=== PATIENT | male | born 1945 | race Caucasian/White ===

== ENCOUNTER 2017-08-16 12:25 | Emergency (ER) | payer MEDICARE, OTHER ==
[2017-08-16 15:18] VITALS: BP 121/47
--- NOTE | 2017-08-16 15:44 | ED ---
Abdominal Pain/Male - HPI Summary HPI Summary: 71 yr old male with abdominal pain, dizziness, feeling off balance at times, coughing, and at times feeling to weak to even get out of bed. The patient has not felt well for about four days. Denies fever, denies chest pain, sob. Denies melena, denies vomiting, diarrhea. The pain in his abdomen comes and goes. - History of Current Complaint Chief Complaint: UCGeneralIllness Stated Complaint: STOMACH ISSUES Time Seen by Provider: 08/16/17 15:11 Pain Intensity: 5 - Allergies/Home Medications Allergies/Adverse Reactions: Allergies Allergy/AdvReac Type Severity Reaction Status Date / Time No Known Allergies Allergy Verified 08/16/17 15:10 Home Medications: Home Medications Acetaminophen TAB* [Tylenol TAB*] 650 mg PO Q4H PRN 08/16/17 [History Confirmed 08/16/17] PMH/Surg Hx/FS Hx/Imm Hx Endocrine/Hematology History: Reports: Hx Diabetes - TYPE II, ON ORAL MEDS Cardiovascular History: Reports: Hx Hypertension - ON MEDS FOR Respiratory History: Denies: Hx Asthma, Hx Chronic Obstructive Pulmonary Disease (COPD) GI History: Reports: Other GI Disorders Comment Only: Hx Ulcer - PT HAD PERFORATED ULCER IN INTESTINE 6 YEARS AGO, EMERGENCY SURGERY Musculoskeletal History: Reports: Hx Arthritis - PT STATES "IN JOINTS" Sensory History: Reports: Hx Cataracts - BILATERAL EYES, Hx Contacts or Glasses - GLASSES Denies: Hx Hearing Aid Opthamlomology History: Reports: Hx Cataracts - BILATERAL EYES, Hx Contacts or Glasses - GLASSES - Cancer History Hx Chemotherapy: Yes - 8 Chemo treatments 2013 Hx Radiation Therapy: Yes - 35 Treatments - Surgical History Surgery Procedure, Year, and Place: Right Mastectomy, intestine rupture Hx Anesthesia Reactions: Yes - SEE COMMENT IN [facility] Infectious Disease History: No Infectious Disease History: Denies: Traveled Outside the [place] in Last 30 Days - Family History Known Family History: Positive: Hypertension Negative: Cardiac Disease, Diabetes - Social History Occupation: Retired Alcohol Use: None Substance Use Type: Reports: None Smoking Status (MU): Former Smoker Amount Used/How Often: 1 PACK A DAY FOR 25 YEARS Review of Systems Positive: Fatigue. Negative: Fever, Chills Negative: Palpitations, Chest Pain Positive: Cough. Negative: Shortness Of Breath Positive: Abdominal Pain Neurological: Other - feels off balance Positive: Weakness - generalized All Other Systems Reviewed And Are Negative: Yes Physical Exam Triage Information Reviewed: Yes Vital Signs On Initial Exam: Initial Vitals Temp Pulse Resp BP Pulse Ox 98.1 F 71 24 121/47 100 08/16/17 15:13 08/16/17 15:13 08/16/17 15:13 08/16/17 15:13 08/16/17 15:13 Vital Signs Reviewed: Yes Appearance: Positive: Well-Appearing, No Pain Distress Skin: Positive: Warm, Skin Color Reflects Adequate Perfusion Head/Face: Positive: Normal Head/Face Inspection ENT: Positive: Normal ENT inspection, Pharynx normal Neck: Positive: Nontender Respiratory/Lung Sounds: Positive: Clear to Auscultation, Breath Sounds Present Cardiovascular: Positive: RRR. Negative: Murmur Abdomen Description: Positive: Nontender Musculoskeletal: Positive: Strength/ROM Intact Neurological: Positive: Sensory/Motor Intact, Alert, Oriented to Person Place, Time, CN Intact II-III, Normal Gait, Speech Normal. Negative: Disoriented - Alex Coma Scale Best Eye Response: 4 - Spontaneous Best Motor Response: 6 - Obeys Commands Best Verbal Response: 5 - Oriented Coma Scale Total: 15 Diagnostics - Vital Signs Vital Signs Temp Pulse Resp BP Pulse Ox 08/16/17 15:13 98.1 F 71 24 121/47 100 - Laboratory Lab Statement: Any lab studies that have been ordered have been reviewed, and results considered in the medical decision making process. Abdominal Pain Fem Course/Dx - Course Course Of Treatment: 71 yr old male with many symptoms, but concerning is the abdominal pain and dizziness, off balance. I have advised him to go by ambulance to the ER as he is at risk for falls injury. He signed out AMA. - Diagnoses Provider Diagnoses: Abdominal pain, Dizziness, Cough Discharge - Discharge Plan Condition: Good Disposition: AGAINST MEDICAL ADVICE Referrals: Migue Pickett MD [Primary Care Provider] -
== END 2017-08-16 15:42 | disposition left against medical advice (07) ==
LOC: UCCORT 12:25
DX: R10.9 Unspecified abdominal pain (principal); R42 Dizziness and giddiness; R05 Cough; R53.1 Weakness; E11.9 Type 2 diabetes mellitus without complications; Z79.84 Long term (current) use of oral hypoglycemic drugs; I10 Essential (primary) hypertension; Z87.891 Personal history of nicotine dependence
CPT/HCPCS: 99212; G0463

== ENCOUNTER 2018-02-08 12:22 | Emergency (ER) | payer OTHER ==
--- OUTSIDE RECORDS SUMMARY | 2018-02-08 12:41 | XMS REPORT ---
:1945 External Reference #:[id number] Author Organization [facility] Address [address], [address] [place] [address] Phone [phone] Care Team Providers Name Role Phone Migue Pickett MD Care Team Information Assistant Media Buyer Unavailable Migue Pickett MD Primary Care Physician Unavailable Payers Type Date Identification Numbers Payment Provider Subscriber Commercial Policy Number: [id number] [employer] Jose Gomez PayID: [id number] [address] [place] [address] Problems Date Description Provider Status Onset: 07/17/2012 Malignant neoplasm of nipple Bill Lopez M.D. Active and areola of male breast Onset: 05/08/2017 Benign prostatic hypertrophy Hood Sandoval M.D. 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 Tamsulosin HCL 05/08/ Active Capsules 0.4mg 90caps 1 by N40.1 [facility] [place] 2016 mouth Jaime, every day M.D. at bedtime Gabapentin / Active Capsules 300mg 1 by Unknown 0000 mouth three times a day Glipizide ER / Active Tablets ER 5mg 1 by Unknown 0000 24HR mouth every day Valsartan / Active Tablets 80mg 1 by Unknown 0000 mouth every day Metformin HCL / Active Tablets 1000mg 1 by Unknown 0000 mouth twice a day Pioglitazone / Active Tablets 45mg 1 by Unknown HCL 0000 mouth every day Simvastatin / Active Tablets 80mg 1 by Unknown 0000 mouth every day Levothyroxine / Active Tablets 50mcg 1 by Unknown Sodium 0000 mouth every day Tamoxifen / Active Tablets 20mg 1 tabl by Unknown Citrate 0000 mouth every day Omeprazole / Hx Capsules 20mg 1 po qd Unknown 0000 - DR 2016 Simvastatin / Hx Tablets 40mg 30tabs 1 po qd Unknown - 2016 Lisinopril / Hx Tablets 10mg 30tabs 1 po qd Unknown 0000 - 2009 Actoplus Met / Hx Tablets 15-850mg Unknown - 2016 Lisinopril-Hydr / Hx Tablets 10-12.5mg 30tabs 1 po qd Unknown ochlorothiazide - 2016 Vital Signs Date Vital Result Comment 01/15/2018 BP Systolic 13 mmHg BP Diastolic 68 mmHg Body Temperature 98.0 F Heart Rate 72 /min Respiratory Rate 17 /min Height 68.50 inches 5'8.50" Weight 216.25 lb BMI (Body Mass Index) 32.4 kg/m2 BSA (Body Surface Area) 2.12 m2 [place] body weight in kilograms 71 Head Circumference 98 inches O2 % BldC Oximetry 97 % Pain Level 0 06/19/2017 BP Systolic 175 mmHg Pt forgot to take BP med this am. BP Diastolic 70 mmHg Pt forgot to take BP med this am. Body Temperature 97.9 F 36.6C Heart Rate 63 /min Respiratory Rate 18 /min Height 68.50 inches 5'8.50" Weight 209.56 lb BMI (Body Mass Index) 31.4 kg/m2 BSA (Body Surface Area) 2.10 m2 [place] body weight in kilograms 71 O2 % BldC Oximetry 98 % Pain Level 0 05/08/2017 BP Systolic 158 mmHg BP Diastolic 66 mmHg Body Temperature 97.9 F Heart Rate 74 /min Respiratory Rate 16 /min Height 68.50 inches 5'8.50" Weight 20.00 lb BMI (Body Mass Index) 3.0 kg/m2 BSA (Body Surface Area) 0.77 m2 [place] body weight in kilograms 71 O2 % BldC Oximetry 99 % Pain Level 0 07/17/2012 Heart Rate 64 /min Respiratory Rate 22 /min Height 68.50 inches 5'8.50" Weight 182.00 lb BMI (Body Mass Index) 27.3 kg/m2 BSA (Body Surface Area) 1.97 m2 12/16/2009 Height 69.50 inches 5'9.50" Weight 173.00 lb BMI (Body Mass Index) 25.2 kg/m2 Results Test Date Test Result H/L Range Note CBC 09/03/2012 White Blood Count 6.7 K/uL 3.4-10.5 Red Blood Count 4.98 M/uL 4.20-5.80 Hemoglobin 13.8 gm/dL 12.8-17.0 Hematocrit 42.4 % 38.0-48.0 Mean Cell Volume 85.1 fl 80.0-96.0 Mean Corpuscular HGB 27.7 pg 27.0-33.0 Mean Corpuscular HGB Conc 32.5 g/dL 31.7-36.0 Platelet Count 245 K/uL 150-400 Red Cell Distri Width %CV 13.1 % 11.6-15.8 Mean Platelet Volume 10.7 fL High 6.6-10.6 Urine Screen 09/03/2012 Urine Color YELLOW Yellow Urine Clarity CLEAR Clear Urine Glucose - Dipstick NEGATIVE mg/dL Negative Urine Bilirubin - Dipstick NEGATIVE Negative Urine Ketone NEGATIVE mg/dL Negative Urine Specific [place] 1.020 1.010-1.030 Urine Blood NEGATIVE Negative Urine PH 6.0 Low 6.5-7.5 Urine Protein - Dipstick NEGATIVE mg/dL Negative Urine Urobilinogen - Dipstick 0.2 E.U./dL 0.2-1.0 Urine Nitrite - Dipstick NEGATIVE Negative Urine Leuk Esterase NEGATIVE Negative Laboratory test finding 08/13/2012 CK 114 U/L 26-190 1 Troponin-I < 0.02 ng/mL 0.00-0.50 2 Basic Metabolic Panel 08/13/2012 Glucose 184 mg/dL High 76-115 BUN 22 mg/dL 5-23 Creatinine 1.2 mg/dL 0.5-1.4 Glom Filtration Rate, Estimate >60 mL/min >60 If >60 mL/min >60 3 BUN/Creat 18.3 ratio Sodium 138 mmol/L 136-145 Potassium 4.0 mmol/L 3.5-5.1 Chloride 104 mmol/L 98-107 Carbon Dioxide 25 mEq/L 18-29 Anion Gap 13 mEq/L 8-16 Calcium 9.1 mg/dL 8.5-10.1 Laboratory test finding 08/13/2012 Breast Modif Rad Mastectomy See Note ln +raya 4 Laboratory test finding 08/13/2012 Breast Modif Rad Mastectomy See Note 5 Type And Screen 08/13/2012 Patient Blood Type O NEG Antibody Screen Negative Negative Laboratory test finding 08/09/2012 Act Partial Thrombo 29.9 seconds 23.9- 34.3 6 Time Protime 08/09/2012 Protime 13.1 seconds 12.1-14.9 Inr 1.0 0.9-1.1 7 CBC 08/09/2012 White Blood Count 7.3 K/uL 3.4-10.5 Red Blood Count 4.91 M/uL 4.20-5.80 Hemoglobin 13.8 gm/dL 12.8-17.0 Hematocrit 42.6 % 38.0-48.0 Mean Cell Volume 86.8 fl 80.0-96.0 Mean Corpuscular HGB 28.1 pg 27.0-33.0 Mean Corpuscular HGB Conc 32.4 g/dL 31.7-36.0 Platelet Count 246 K/uL 150-400 Red Cell Distri Width %CV 13.3 % 11.6-15.8 Mean Platelet Volume 10.8 fL High 6.6-10.6 Basic Metabolic Panel 08/09/2012 Glucose 171 mg/dL High 76-115 BUN 20 mg/dL 5-23 Creatinine 1.2 mg/dL 0.5-1.4 Glom Filtration Rate, Estimate >60 mL/min >60 If >60 mL/min >60 8 BUN/Creat 16.6 ratio Sodium 138 mmol/L 136-145 Potassium 4.6 mmol/L 3.5-5.1 Chloride 103 mmol/L 98-107 Carbon Dioxide 30 mEq/L High 18-29 Anion Gap 10 mEq/L 8-16 Calcium 9.5 mg/dL 8.5-10.1 CBC 12/07/2009 White Blood Count 6.5 K/uL 3.4-10.5 Red Blood Count 3.82 M/uL Low 4.20-5.80 Hemoglobin 10.9 gm/dL Low 12.8-17.0 Hematocrit 33.9 % Low 38.0-48.0 Mean Cell Volume 88.7 fl 80.0-96.0 Mean Corpuscular HGB 28.5 pg 27.0-33.0 Mean Corpuscular HGB Conc 32.2 g/dL 31.7-36.0 Platelet Count 245 K/uL 150-400 Red Cell Distri Width %CV 13.7 % 11.6-15.8 Mean Platelet Volume 9.6 fL 6.6-10.6 Basic Metabolic Panel 12/07/2009 Glucose 96 mg/dL 76-115 BUN 14 mg/dL 5-23 Creatinine 0.8 mg/dL 0.5-1.4 Glom Filtration Rate, Estimate >60 mL/min >60 If >60 mL/min >60 9 BUN/Creat 17.5 Sodium 141 mEq/L 136-145 Potassium 3.9 mEq/L 3.5-5.1 Chloride 107 mEq/L 98-107 Carbon Dioxide 29 mEq/L 21-32 Anion Gap 9 mEq/L 8-16 Calcium 8.3 mg/dL Low 8.5-10.1 CBS W/Automated Diff 12/05/2009 White Blood Count 9.4 K/uL 3.4-10.5 Red Blood Count 3.75 M/uL Low 4.20-5.80 Hemoglobin 10.9 gm/dL Low 12.8-17.0 Hematocrit 33.5 % Low 38.0-48.0 Mean Cell Volume 89.3 fl 80.0-96.0 Mean Corpuscular HGB 29.1 pg 27.0-33.0 Mean Corpuscular HGB Conc 32.5 g/dL 31.7-36.0 Platelet Count 225 K/uL 150-400 Red Cell Distri Width %CV 14.2 % 11.6-15.8 Mean Platelet Volume 10.2 fL 6.6-10.6 Neut% 76.7 % High 33.0-73.0 Lymph % 14.8 % Low 17.0-56.0 [place] % 7.2 % 0.0-10.0 Eo% 1.1 % 0.0-5.0 Bas% 0.2 % 0.1-1.0 Neut# 7.2 K/uL High 1.8-7.0 Lymph # 1.4 K/uL 1.2-4.0 [place] # 0.7 K/uL High 0.0-0.6 Eos # 0.1 K/uL 0.0-0.5 Baso # 0.0 K/uL Low 0.1-0.2 Red Cell Distri Width SD 45 fl 36-51 Laboratory test finding 12/05/2009 Glycohemoglobin A1c 6.9 % High 4.8-6.0 10 Basic Metabolic Panel 12/05/2009 Glucose 150 mg/dL High 76-115 BUN 10 mg/dL 5-23 Creatinine 1.0 mg/dL 0.5-1.4 Glom Filtration Rate, Estimate >60 mL/min >60 If >60 mL/min >60 11 BUN/Creat 10.0 Sodium 141 mEq/L 136-145 Potassium 3.8 mEq/L 3.5-5.1 Chloride 108 mEq/L High 98-107 Carbon Dioxide 29 mEq/L 21-32 Anion Gap 8 mEq/L 8-16 Calcium 8.2 mg/dL Low 8.5-10.1 Basic Metabolic Panel 12/03/2009 Glucose 249 mg/dL High 76-115 BUN 18 mg/dL 5-23 Creatinine 1.1 mg/dL 0.5-1.4 Glom Filtration Rate, Estimate >60 mL/min >60 If >60 mL/min >60 12 BUN/Creat 16.3 Sodium 136 mEq/L 136-145 Potassium 4.2 mEq/L 3.5-5.1 Chloride 105 mEq/L 98-107 Carbon Dioxide 25 mEq/L 21-32 Anion Gap 10 mEq/L 8-16 Calcium 7.8 mg/dL Low 8.5-10.1 CBC 12/03/2009 White Blood Count 12.0 K/uL High 3.4-10.5 Red Blood Count 4.29 M/uL 4.20-5.80 Hemoglobin 12.4 gm/dL Low 12.8-17.0 Hematocrit 36.8 % Low 38.0-48.0 Mean Cell Volume 85.8 fl 80.0-96.0 Mean Corpuscular HGB 28.9 pg 27.0-33.0 Mean Corpuscular HGB Conc 33.7 g/dL 31.7-36.0 Platelet Count 227 K/uL 150-400 Red Cell Distri Width %CV 13.6 % 11.6-15.8 Mean Platelet Volume 10.3 fL 6.6-10.6 Laboratory test finding 2009 Appendix Inflammation See Note 13, 14 Anaerobic Culture W/ GR 2009 Gram Stain; Anaerobic See Note 15 Stain Specimen Anaerobic Culture See Note 16 Fluid Culture W/ Gram Stain 2009 Gram Stain See Note 17 Fluid Culture See Note 18 Laboratory test finding 2009 Anaerobic Culture W/ GR Stain See Note 19 Routine Culture W/ Gram Stain See Note 20 1 CALLED CHRISTINE Ortega AT 1250 08/13/12 by LAB.KLS 2 0 - 0.5 ng/mL: No evidence of myocardial injury 0.6 - 1.4 ng/mL: Mild elevation, suggesting possible myocardial injury > 1.4 ng/mL: Consistent with myocardial injury 3 Note: Persistent reduction for 3 months or more in an eGFR <60 mL/min/1.73 m2 defines CKD. Patients with eGFR values >/=60 mL/min/1.73 m2 may also have CKD if evidence of persistent proteinuria is present. The original MDRD equation for estimated GFR is not valid for patients less than 18 years of age. Additional information may be found at www.kdoqi.org. 4 OPERATION/PROCEDURE Right modified radical mastectomy, lymph scintigraphy, sentinel lymph node biopsy. DIAGNOSIS: PART 1: "RIGHT SENTINEL NODE": NO METASTASIS SEEN IN ONE LYMPH NODE. PART 2: "ADDITIONAL POSITIVE NODE": POSITIVE FOR METASTASIS IN ONE OUT OF ONE LYMPH NODE. PART 3: "RIGHT BREAST, MASTECTOMY": INVASIVE DUCTAL CARCINOMA, INTERMEDIATE GRADE, SEE MICROSCOPIC DESCRIPTION. DUCTAL CARCINOMA IN SITU, COMEDO TYPE, HIGH GRADE. NO EVIDENCE OF PAGET'S DISEASE. NO EVIDENCE OF MALIGNANCY AT MARGINS. PATHOLOGIC STAGING: pT1c, N1, MX. JW/leof INTERPRETATION COMMENT Previous biopsy ([id number]) was reviewed. No high grade nuclei are seen. In the current specimen, both high and low grade nuclei are seen. The discrepancy between two specimens is most likely caused by sampling error. GROSS Part 1. Received fresh labeled, "SENTINEL NODE, RIGHT" is a 1.5 x 1.4 x 0.5 cm. cano-pink soft tissue. It is serially sectioned and submitted in toto in block #1. Part 2. Received fresh labeled, "ADDITIONAL POSITIVE NODE" is a 1.7 x 0.9 x 0.9 cm. cano-pink rubbery tissue. Trisected and submitted in toto in block #2. JW/clf Part 3. Received in formalin labeled, "RIGHT BREAST" is a cano-yellow, soft fibroadipose tissue measuring 14.2 cm. from superior to inferior, 10.9 cm. from medial to lateral and 3.1 cm. from posterior to anterior. A 6.5 x 3.2 cm. skin ellipse is seen on the surface. The nipple is located 0.8 cm. from the inferior margin and 3.2 cm. from the medial margin. A suture ordoñez the medial margin. Approximately 1.1 cm. from the medial margin is a scar, said to be the previous biopsy spot. The margins are inked as follows: superior-blue, inferior-green, medial-red, lateral-yellow and posterior-black. The specimen is serially sectioned from medial to lateral. On cut surface there is a firm mass measuring up to 1.9 cm. in greatest dimension that is located 3.5 cm. from inferior margin, 1.7 cm. from the posterior margin and 3.9 cm. from the medial margin. There are focal hemorrhagic changes within this mass that is compatible with the previous biopsy site. The background breast tissue is grossly unremarkable. [employer] sections are submitted as follows: A1-A3=mass with associated posterior margin, B1=nipple, B2+B3=other margins, C1-C4=background breast tissue, C1- contains the tissue from the upper/outer quadrant, C2-upper/inner quadrant, C3-lower inner quadrant, C4-lower outer quadrant. /leo MICROSCOPIC Part 1: Sections show a lymph node without evidence of epithelial malignant cells. However atypical cells forming vague glandular pattern are seen in fibrotic tissue outside the lymph node. Part 2: Sections show a lymph node with evidence of epithelial malignant cells. Part 3: Sections reveal irregular ducts lined by atypical cells infiltrating through desmoplastic stroma. Some of them have associated microcalcification. Dilated ducts lined by markedly atypical ductal cells with central necrosis and calcification are seen. Background non-neoplastic tissue and nipple are histologically unremarkable. Immunohistochemistry studies were performed at [facility] and interpreted at [facility] with proper controls, because of high grade components that were not identified in previous biopsy. Greatest dimension: 1.9 cm, gross measurement. Histologic type: Invasive ductal carcinoma. Histologic Grade ([place] Histologic Score): Intermediate grade. Tubule Formation: Minimal less than 10%, score=3. Nuclear Pleomorphism: Marked, score=3. Mitotic Count: Less than 5 per 10 high power thomas, score=1. In situ component: Comedo type, high grade. Marginal status: Uninvolved by invasive disease. Vascular invasion: Indeterminate. Perineural invasion: Not identified. Estrogen receptor: >80% nuclear stain, high positive. Progesterone receptor: >80% nuclear stain, high positive. Iaa4pts: 1+, No evidence of amplification. PRE OPERATIVE DIAGNOSIS Right breast cancer. REVIEW CODE CODE: I NATALIIA Figueroa MD 08/19/12 1346 5 OPERATION/PROCEDURE Right modified radical mastectomy, lymph scintigraphy, sentinel lymph node biopsy. ADDENDUM Addendum #1 Entered: 12/10/12-142 This case was reviewed as requested by Dr. Car. No evidence of extracapsular extension is seen in the sentinel lymph node (part 2) with metastatic ductal carcinoma. Dr. Car's office ([place]) was notified about this update. Addendum Signed NATALIIA DREW MD 12/10/12 1423 DIAGNOSIS: PART 1: "RIGHT SENTINEL NODE": NO METASTASIS SEEN IN ONE LYMPH NODE. PART 2: "ADDITIONAL POSITIVE NODE": POSITIVE FOR METASTASIS IN ONE OUT OF ONE LYMPH NODE. PART 3: "RIGHT BREAST, MASTECTOMY": INVASIVE DUCTAL CARCINOMA, INTERMEDIATE GRADE, SEE MICROSCOPIC DESCRIPTION. DUCTAL CARCINOMA IN SITU, COMEDO TYPE, HIGH GRADE. NO EVIDENCE OF PAGET'S DISEASE. NO EVIDENCE OF MALIGNANCY AT MARGINS. PATHOLOGIC STAGING: pT1c, N1, MX. DIAGNOSIS: (Continued) Dee INTERPRETATION COMMENT Previous biopsy ([id number]) was reviewed. No high grade nuclei are seen. In the current specimen, both high and low grade nuclei are seen. The discrepancy between two specimens is most likely caused by sampling error. GROSS Part 1. Received fresh labeled, "SENTINEL NODE, RIGHT" is a 1.5 x 1.4 x 0.5 cm. cano-pink soft tissue. It is serially sectioned and submitted in toto in block #1. Part 2. Received fresh labeled, "ADDITIONAL POSITIVE NODE" is a 1.7 x 0.9 x 0.9 cm. cano-pink rubbery tissue. Trisected and submitted in toto in block #2. BENEDICT/david Part 3. Received in formalin labeled, "RIGHT BREAST" is a cano-yellow, soft fibroadipose tissue measuring 14.2 cm. from superior to inferior, 10.9 cm. from medial to lateral and 3.1 cm. from posterior to anterior. A 6.5 x 3.2 cm. skin ellipse is seen on the surface. The nipple is located 0.8 cm. from the inferior margin and 3.2 cm. from the medial margin. A suture ordoñez the medial margin. Approximately 1.1 cm. from the medial margin is a scar, said to be the previous biopsy spot. The margins are inked as follows: superior-blue, inferior-green, medial-red, lateral-yellow and posterior-black. The specimen is serially sectioned from medial to lateral. On cut surface there is a firm mass measuring up to 1.9 cm. in greatest dimension that is located 3.5 cm. from inferior margin, 1.7 cm. from the posterior margin and 3.9 cm. from the medial margin. There are focal hemorrhagic changes within this mass that is compatible with the previous biopsy site. The background breast tissue is grossly unremarkable. [place] sections are submitted as follows: A1-A3=mass with associated posterior margin, B1=nipple, B2+B3=other margins, C1-C4=background breast tissue, C1- contains the tissue from the upper/outer quadrant, C2-upper/inner quadrant, C3-lower inner quadrant, C4-lower outer quadrant. JW/elof MICROSCOPIC Part 1: Sections show a lymph node without evidence of epithelial malignant cells. However atypical cells forming vague glandular pattern are seen in fibrotic tissue outside the lymph node. Part 2: Sections show a lymph node with evidence of epithelial malignant cells. Part 3: Sections reveal irregular ducts lined by atypical cells infiltrating through desmoplastic stroma. Some of them have associated microcalcification. Dilated ducts lined by markedly atypical ductal cells with central necrosis and calcification are seen. Background non-neoplastic tissue and nipple are histologically unremarkable. Immunohistochemistry studies were performed at [facility] and interpreted at [facility] with proper controls, because of high grade components that were not identified in previous biopsy. Greatest dimension: 1.9 cm, gross measurement. Histologic type: Invasive ductal carcinoma. Histologic Grade ([place] Histologic Score): Intermediate grade. Tubule Formation: Minimal less than 10%, score=3. Nuclear Pleomorphism: Marked, score=3. Mitotic Count: Less than 5 per 10 high power thmoas, score=1. In situ component: Comedo type, high grade. Marginal status: Uninvolved by invasive disease. Vascular invasion: Indeterminate. Perineural invasion: Not identified. MICROSCOPIC (Continued) Estrogen receptor: >80% nuclear stain, high positive. Progesterone receptor: >80% nuclear stain, high positive. Nha6cfx: 1+, No evidence of amplification. PRE OPERATIVE DIAGNOSIS Right breast cancer. REVIEW CODE CODE: I NATALIIA Figueroa MD 08/19/12 1346 6 Is patient on heparin protocol? N Is patient on anticoagulants? Unknown QUERY: Anticoagulant Therapy? QUERY: Date of Last Dose: QUERY: Time of Last Dose: 7 THERAPEUTIC INR RANGE: 2.0 - 3.0 DVT, Pulmonary embolus, prophylaxis against venous thrombosis or systemic embolization in high risk patients. 2.5 - 3.5 Mechanical heart valves 8 Note: Persistent reduction for 3 months or more in an eGFR <60 mL/min/1.73 m2 defines CKD. Patients with eGFR values >/=60 mL/min/1.73 m2 may also have CKD if evidence of persistent proteinuria is present. The original MDRD equation for estimated GFR is not valid for patients less than 18 years of age. Additional information may be found at www.kdoqi.org. 9 Note: Persistent reduction for 3 months or more in an eGFR <60 mL/min/1.73 m2 defines CKD. Patients with eGFR values >/=60 mL/min/1.73 m2 may also have CKD if evidence of persistent proteinuria is present. The original MDRD equation for estimated GFR is not valid for patients less than 18 years of age. Additional information may be found at www.kdoqi.org. 10 Current guidelines recommend a treatment goal of <7% for diabetic patients. This method will measure glycosylated hemoglobin variants, HbS, HbG, HbH, HbWayne, HbC, HbE, etc. Other hemoglobin- opathies may give incorrect results with this test. Note change in expected values for healthy individuals 11 Note: Persistent reduction for 3 months or more in an eGFR <60 mL/min/1.73 m2 defines CKD. Patients with eGFR values >/=60 mL/min/1.73 m2 may also have CKD if evidence of persistent proteinuria is present. The original MDRD equation for estimated GFR is not valid for patients less than 18 years of age. Additional information may be found at www.kdoqi.org. 12 Note: Persistent reduction for 3 months or more in an eGFR <60 mL/min/1.73 m2 defines CKD. Patients with eGFR values >/=60 mL/min/1.73 m2 may also have CKD if evidence of persistent proteinuria is present. The original MDRD equation for estimated GFR is not valid for patients less than 18 years of age. Additional information may be found at www.kdoqi.org. 13 OPERATION/PROCEDURE Exp. lap./appendectomy/grahm patch. DIAGNOSIS: "APPENDIX": APPENDIX WITH FEATURES SUGGESTIVE OF EARLY ACUTE APPENDICITIS. BENEDICT/david GROSS The specimen is received in a single container additionally labeled, "APPENDIX". This is 5.5 cm. appendix with a uniform diameter of 0.8 cm. The serosa is congested, but without exudates or visible perforation. The mesoappendiceal adipose tissue is unremarkable. The specimen is serially sectioned and the entire appendix is submitted within two cassettes. Only mesoappendiceal adipose tissue is remaining. WS/ clf MICROSCOPIC Sections reveal appendix with lymphoid follicles hypertrophy. Very rare neutrophils are seen in the stroma and glands. The serosal vessels are congested without an exudate. PRE OPERATIVE DIAGNOSIS [facility] pain REVIEW CODE CODE: I Signed NATALIIA DREW MD 12/07/09 14 12/07/09 ([place] ) 09:35 PM SARKIS[place]ELIA Clarita JOHANNY He has the perforation in the duodenum. Appendix taken as planned. 15 GRAM STAIN ! NO ORGANISMS SEEN 16 Organism 1 ! NO GROWTH 17 GRAM STAIN ! NO ORGANISMS SEEN 18 NO GROWTH: FINAL REPORT 19 INCORRECT ORDER 20 INCORRECT ORDER Procedures Date CPT Code Description Status 01/15/2018 21249 Measurement Post Voiding Residual Urine By Completed Ultrasound,Non-Imaging 05/08/2017 49569 Measurement Post Voiding Residual Urine By Completed Ultrasound,Non-Imaging 05/08/2017 89909 complex uroflowmetry electronic Completed 02/26/2014 96770 Remove venous access, +subq port or pump, central or Completed peripheral 05/06/2013 98320 Nerve Conduction 9-10 Studies Completed 05/06/2013 74524 Needle Electromyography Complete, Five Or More Muscles Completed Studied 02/27/2013 76385 Echocardiogram Complete Completed 09/20/2012 03142 Echocardiogram Complete Completed 09/06/2012 66280 Insert tunneled central venous catheter with Completed subcutaneous pump 09/06/2012 83470 Anesthesia Access To Central Venous Circulation Completed 08/13/2012 09193 EKG Interpretation And Report Only Completed 08/13/2012 86363 Mastectomy; simple, complete Completed 08/13/2012 46433 Anesthesia, Integumentary, Chest Anterior, Unspec Completed 08/09/2012 29237 EKG Interpretation And Report Only Completed 2009 92639 Laparoscopy, surgical, appendectomy Completed 2009 22347 Gastrorrhaphy, suture perforated duodenal or gastric Completed ulcer/wound Encounters Type Date Location Provider CPT E/M Dx Office Visit 01/15/2018 10:45a Urology Hood Sandoval M.D. 59443 N40.1 Office Visit 06/19/2017 10:15a Urology Hood Sandoval M.D. 81902 N40.1 Office Visit 05/08/2017 10:15a Urology Hood Sandoval M.D. 78233 N40.1 N40.1 Office Visit 03/12/2014 1:30p Surgical Office Bill Lopez, 06710 V67.09 M.DJuve 175.0 Office Visit 12/10/2013 11:30a Surgical Office Bill Lopez 34173 175.0 M.D. Office Visit 09/18/2012 3:15p Surgical Office Bill Lopez 62002 V67.09 M.D. 175.0 Office Visit 09/02/2012 9:30a Surgical Office Bill Lopez 03048 175.0 M.D. Office Visit 07/17/2012 11:30a Surgical Office Bill Lopez, 86256 175.0 M.D. Plan of Care Future Appointment(s):07/18/2018 10:45 am - Hood Sandoval M.D. at [id number] - Hood Sandoval M.D.N40.1 Benign prostatic hyperplasia with lower urinary tract sympNew Medication:Finasteride 5 mgComments:Patient is to continue with Flomax and I will add Proscar. Patient to follow up in 6 months for uroflow and PVR
--- OUTSIDE RECORDS SUMMARY | 2018-02-08 12:41 | XMS REPORT ---
:1945 External Reference #:[id number] Author Organization Migue Pickett M.D. Address [address] [place] [address] Phone [phone] Care Team Providers Name Role Phone Migue Pickett M.D. 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 [address] [place] [address] Advance Directives Type Date Description Status Comment Other Directive 06/20/2016 Health Care Proxy Current and Verified Problems Date Description Provider Status Onset: 07/24/2011 Type 2 diabetes mellitus Migue Pickett M.D. Active Onset: 07/24/2011 Essential hypertension Migue Pickett M.D. Active Onset: 07/24/2011 Hyperlipidemia Migue Pickett M.D. Active Onset: 07/24/2011 Insomnia Migue Pickett M.D. Active Onset: 07/24/2011 Anemia Migue Pickett M.D. Active Onset: 11/14/2017 Type 2 diabetes mellitus with Migue Pickett M.D. Active diabetic neuropathy, unsp Onset: 11/14/2017 Chronic kidney disease Migue Pickett M.D. Active Onset: 11/14/2017 Hypothyroidism Migue Pickett M.D. Active Onset: 11/14/2017 Acute bronchitis Migue Pickett M.D. Active Onset: 11/14/2017 Adult health examination Migue Pickett M.D. Active Onset: 11/14/2017 Screening for malignant neoplasm Migue Pickett M.D. Active of rectum Onset: 11/14/2017 Screening for malignant neoplasm Migue Pickett M.D. Active of prostate Onset: 11/14/2017 Shoulder joint pain Migue Pickett M.D. Active Onset: 11/14/2017 Urinary incontinence Migue Pickett M.D. Active Onset: 11/14/2017 Immunization Migue Pickett M.D. Active Onset: 11/14/2017 Ingrowing nail Migue Pickett M.D. Active Onset: 11/14/2017 Cellulitis of right upper limb Migue Pickett M.D. Active Onset: 11/14/2017 Body mass index 30+ - obesity Migue Pickett M.D. Active Onset: 07/24/2011 Gastroesophageal reflux disease Migue Pickett M.D. 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 Resolved hemorrhage, without perforation AND without obstruction Resolved: 11/05/2015 Family History Date Family Member(s) Problem(s) Comments General Esophagus Cancer General Diabetes First Son Cancer Lymphoma / Bone marrow transplant Social History Type Date Description Comments Marital Status Legal Status: Lives With Significant Other Lives With Girlfriend Work Status Full-Time Employment ETOH Use Denies alcohol use Smoking 10/12/2016 Patient is a former smoker 27 years tobacco free. Daily Caffeine Consumes on average 3 sodas per day Allergies, Adverse Reactions, Alerts Date Description Reaction Status Severity Comments 07/24/2011 NKDA active Medications Medication Date Status Form Strength Qnty SIG Indications Ordering Provider Trazodone HCL 01/17/ Active Tablets 50mg 30tabs 1 by G47.00 2017 mouth Avilez every day Bridgett cardona Levoxyl 04/27/ Active Tablets 50mcg 30tabs 1 by E03.9 2016 mouth Avilez every day Bridgett cardona Vitamin D3 10/11/ Active Capsules [id number] 12caps take 1 2016 capsule Avilez by mouth Bridgett cardona every week Valsartan 03/10/ Active Tablets 80mg 90tabs 1 by E11.40 2015 mouth Avilez every day Bridgett cardona in in the morning Glipizide ER 06/21/ Active Tablets ER 5mg 90tabs one daily E11.40 Migue 2014 24HR ( stop Avilez the 10mg s, M.D. dose ) Metformin HCL 05/21/ Active Tablets 1000mg 180tab 1 by E11.40 Migue 2014 s mouth Avilez twice a s, M.D. day Pioglitazone 05/21/ Active Tablets 45mg 90tabs 1 by E11.40 Migue SAVAGE 2014 mouth Avilez every day s, M.D. Gabapentin 08/20/ Active Capsules 300mg 180cap 1 by E11.40 Migue 2014 s mouth 2 Avilez times a s, M.D. day Lifestyle By 10/01/ Active 90unit use daily E11.40 Migue Soliz 2014 s Avilez Chemstrips Bridgett cardona Lancets 31G 10/01/ Active Misc 31G 90unit use daily E11.40 Migue Twist TOP 2014 s and as Avilez needed sRo. Tamoxifen 08/11/ Active Tablets 20mg 30tabs 1 daily Migue Citrate 2013 Avilez Ro cardona. Simvastatin 05/16/ Active Tablets 80mg 90tabs 1 every E78.5 Migue 2012 at night Avilez sRo. Tamsulosin HCL / Active Capsules 0.4mg Unknown 0000 Azithromycin 08/22/ Hx Tablets 250mg 6tabs 2 now and J20.9 Migue 2017 - 1 daily x Avilez 10/18/ 4 days s, M.D. 2018 Celecoxib 05/17/ Hx Capsules 200mg 30caps 1 by M25.512 Migue 2016 - mouth Avilez 07/09/ every day s, M.D. 2018 N52.9 Cephalexin 01/15/2017 - Hx Tablets 500mg 40tabs 1 by L03.113 Migue 01/22/2017 mouth Pickett, four M.D. times a day Azithromycin 02/29/2016 - Hx Tablets 250mg 6tabs 2 now and J20.9 Migue 03/10/2016 1 daily x Pickett, 4 days M.D. Trazodone HCL 05/21/2015 - Hx Tablets 100mg 90tabs 1 every G47.00 Migue 04/27/2017 night at Pickett, bedtime M.D. Glipizide ER 05/21/2015 - Hx Tablets 10mg 90tabs 1 by E11.40 Migue 06/21/2015 ER 24HR mouth Pickett, every day M.D. Januvia 02/04/2015 - Hx Tablets 100mg 30tabs 1 by Migue 05/21/2015 mouth Pickett, every day M.D. Glucotrol XL 12/14/2014 - Hx Tablets 5mg 30tabs 1 by 250.00 Migue 05/21/2015 ER 24HR mouth Pickett, every day M.D. Trazodone HCL 12/14/2014 - Hx Tablets 50mg 30tabs 1 by G47.00 Migue 05/21/2015 mouth Pickett, every day M.D. Metformin HCL 08/20/2014 - Hx Tablets 850mg 60tabs 1 by 250.00 Migue 05/21/2015 mouth Pickett, twice a M.D. day Farxiga 02/24/2014 - Hx Tablets 5mg 30tabs one daily 250.00 Migue 02/04/2015 Bridgett Pickett Metformin HCL 02/03/2014 - Hx Tablets 500mg 60tabs 1 by 250.00 Migue 08/20/2014 mouth Pickett, twice a M.D. day Hydrocodone-Abhilash 02/03/2014 - Hx Tablets 5-325mg 120tabs 1 tab by 356.8 Migue taminophen 12/14/2014 mouth Pickett, every 4 M.D. hours as needed Allopurinol 11/07/2013 - Hx Tablets 100mg 30tabs 1 by 274.9 Migue 02/03/2014 mouth Pickett, every day M.D. Lifestyle By 10/01/2013 - Hx 1units use daily Migue Soliz 06/21/2015 PickettAster M.DJuve Tradjenta 09/22/2013 - Hx Tablets 5mg 30tabs 1 by 250.00 Migue 02/24/2014 mouth Pickett, every day M.D. Diovan 09/22/2013 - Hx Tablets 80mg 90tabs 1 by E11.40 Migue 03/10/2016 mouth Pickett, every day M.D. Invokana 08/11/2013 - Hx Tablets 300mg 30tabs 1 daily 250.00 Migue 08/11/2013 in michael Pickett M.D. Actos 08/11/2013 - Hx Tablets 30mg 30tabs 1 by 250.00 Migue 05/21/2015 mouth Pickett, every day MJuveDJuve Miralax 08/11/2013 - Hx Powder [id number] 1Can 1 po qd 564.00 Migue 04/27/2017Sunday, Piyush, sun, and EribertoDJuve sunday Metformin HCL 07/22/2013 - Hx Tablets 1000mg 180tabs 1 po bid 250.00 Migue 08/11/2013 Bridgett Pcikett Invokana 06/12/2013 - Hx Tablets 100mg 30tabs 1 daily 250.00 Migue 07/22/2013 in am Bridgett Pickett Lisinopril/Hydr 06/12/2013 - Hx Tablets 20-25mg 90tabs 1 po qd 401.9 Migue ochlorothiazide 09/22/2013 Bridgett Pickett 250.00 Pioglitazone 03/18/2013 Hx Tablets 15-850mg 180tabs Take One 250.00 Migue HCL/Metformin HCL - Tablet By Piyush, 06/12/2013 Mouth M.DJuve Twice A Day Tramadol HCL 02/28/2013 Hx Tablets 50mg 90tabs 1 po Migue - every 4 Piyush, 08/11/2013 hours as M.DJuve needed Oxycodone/Acetami 01/30/2013 Hx Tablets 5-325mg 120tabs 1 for 726.19 Migue nophen - moderate Piyush, 02/28/2013 pain, 2 M.D. for severe pain, q 4 hrs prn Prochlorperazine 01/30/2013 Hx Tablets 10mg 20tabs 1 q 6hrs 787.01 Migue Maleate - prn Piyush, 08/11/2013 MJuveDJuve Lancets 02/01/2012 Hx Misc 200units bid 250.00 Migue Pickett, 06/21/2015 EribertoDJuve Simvastatin 07/24/2011 Hx Tablets 40mg 90tabs 1 tab by 272.4 Migue - mouth Pickett, 05/16/2013 every day M.DJuve Lisinopril/Hydroc 07/24/2011 Hx Tablets 10-12.5mg 90tabs 1 tab by 401.9 Migue hlorothiazide - mouth Piyush 06/12/2013 every day M.D. 250.00 Onetouch Ultra 05/29/2011 - Hx Strips 50units use one 250.00 Migue Casper 06/21/2015 daily and roselia Pickett M.DJuve Actoplus Met - Hx Tablets 15- 180tabs 1 bid 250.00 Migue 06/12/2013 850 Piyush, mg M.DJuve Omeprazole - Hx Capsules DR 20m 60caps take one 530.81 Migue 05/20/2014 g capsule by silke Pickett MJuveDJuve twice a day Azithromycin - Hx Tablets 250 Unknown 02/29/2016 mg Prednisone - Hx Tablets 20m Unknown 02/29/2016 g Prednisone - Hx Tablets 20m Unknown 04/27/2017 g Ketorolac - Hx Solution 0.5 Unknown Tromethamine 04/27/2017 % Prednisolone - Hx Suspension 1% Unknown Acetate 04/27/2017 Immunizations CPT Code Status Date Vaccine Reaction Lot # [id number] Given 04/27/2017 Influenza VZV [id number] Vac,Quad,Split=>3 Yrs 64193 Given 04/14/2016 Flu High Dose Hidose flu [id number] Vaccine p 52857 Given 05/21/2015 Flu High Dose risk & benefits Hi Dose Flu Vaccine discussed [id number] 33127 Given 05/21/2015 Flu High Dose flu>3 [id number] s Vaccine 43132 Given 05/20/2014 Flu High Dose High do Flu Vaccine [id number] 76115 Given 04/07/2013 Flu High Dose High doseflu Vaccine [id number] 88003 Given 02/01/2012 Pneumovax PPSV-23 [id number] 43560 Given 04/21/2011 Flu High Dose Vaccine 17820 Given 04/13/2010 Flu High Dose Vaccine 12743 Given 01/06/2010 Tetanus and diptheria Td (PF) 03295 Given 06/28/2009 Flu Triv Old Code 33999 Given 11/26/2008 Tdap Vaccine over 7 yrs old 17797 Given 04/06/2008 Flu Triv Old Code 91055 Given 05/10/2007 Pneumovax PPSV-23 60456 Given 05/10/2007 Flu Triv Old Code Vital Signs Date Vital Result Comment 01/17/2018 Weight 216.00 lb BP Systolic 138 mmHg BP Diastolic 54 mmHg 10/18/2017 Weight 212.00 lb BP Systolic 142 mmHg BP Diastolic 58 mmHg 08/22/2017 Weight 212.00 lb BP Systolic 126 mmHg BP Diastolic 60 mmHg 07/05/2017 Weight 207.00 lb BP Systolic 142 mmHg BP Diastolic 64 mmHg Height 68.75 inches 5'8.75" Body Temperature 97.5 F BMI (Body Mass Index) 30.8 kg/m2 05/17/2017 Weight 206.50 lb BP Systolic 122 mmHg BP Diastolic 66 mmHg 04/27/2017 Weight 204.00 lb BP Systolic 132 mmHg BP Diastolic 62 mmHg 01/22/2017 Weight 200.00 lb BP Systolic 140 mmHg BP Diastolic 70 mmHg 01/15/2017 Weight 201.00 lb BP Systolic 136 mmHg BP Diastolic 64 mmHg 10/12/2016 Weight 206.00 lb BP Systolic 142 mmHg BP Diastolic 72 mmHg Height 68.75 inches 5'8.75" BMI (Body Mass Index) 30.6 kg/m2 06/20/2016 Weight 189.00 lb BP Systolic 110 mmHg BP Diastolic 60 mmHg Height 68.75 inches 5'8.75" Heart Rate 72 /min Respiratory Rate 16 /min BMI (Body Mass Index) 28.1 kg/m2 04/14/2016 Weight 195.00 lb BP Systolic 140 mmHg BP Diastolic 70 mmHg 03/10/2016 Weight 192.00 lb BP Systolic 102 mmHg BP Diastolic 80 mmHg 02/29/2016 Weight 188.50 lb BP Systolic 120 mmHg BP Diastolic 60 mmHg 11/05/2015 Weight 190.50 lb BP Systolic 138 mmHg BP Diastolic 68 mmHg Height 68.75 inches 5'8.75" Heart Rate 60 /min Body Temperature 98.2 F Respiratory Rate 16 /min BMI (Body Mass Index) 28.3 kg/m2 06/21/2015 Weight 191.00 lb BP Systolic 118 mmHg BP Diastolic 54 mmHg 05/21/2015 Weight 183.00 lb BP Systolic 140 mmHg BP Diastolic 60 mmHg Height 68.75 inches 5'8.75" Heart Rate 16 /min Body Temperature 97.9 F Respiratory Rate 16 /min BMI (Body Mass Index) 27.2 kg/m2 01/11/2015 Weight 188.00 lb BP Systolic 130 mmHg BP Diastolic 60 mmHg 12/14/2014 Weight 186.00 lb BP Systolic 116 mmHg BP Diastolic 72 mmHg 09/14/2014 Weight 186.00 lb BP Systolic 136 mmHg BP Diastolic 70 mmHg 08/20/2014 Weight 187.00 lb BP Systolic 120 mmHg BP Diastolic 70 mmHg 05/20/2014 Weight 184.00 lb BP Systolic 156 mmHg BP Diastolic 68 mmHg Height 68.50 inches 5'8.50" Heart Rate 60 /min Body Temperature 98.1 F Respiratory Rate 16 /min BMI (Body Mass Index) 27.6 kg/m2 02/03/2014 Weight 183.00 lb BP Systolic 124 mmHg BP Diastolic 70 mmHg 11/07/2013 Weight 171.50 lb BP Systolic 130 mmHg BP Diastolic 56 mmHg 09/22/2013 Weight 166.00 lb BP Systolic 138 mmHg BP Diastolic 70 mmHg 08/11/2013 Weight 165.00 lb BP Systolic 120 mmHg BP Diastolic 60 mmHg 07/22/2013 Weight 169.00 lb BP Systolic 136 mmHg BP Diastolic 70 mmHg 06/12/2013 Weight 169.00 lb BP Systolic 120 mmHg BP Diastolic 70 mmHg 05/16/2013 Weight 170.00 lb BP Systolic 136 mmHg BP Diastolic 68 mmHg Height 68.75 inches 5'8.75" Heart Rate 68 /min Body Temperature 98.7 F Respiratory Rate 16 /min BMI (Body Mass Index) 25.3 kg/m2 05/01/2013 Weight 174.00 lb BP Systolic 98 mmHg 130/60 BP Diastolic 40 mmHg 130/60 04/07/2013 Weight 169.50 lb BP Systolic 140 mmHg BP Diastolic 70 mmHg 02/28/2013 Weight 166.50 lb BP Systolic 126 mmHg BP Diastolic 60 mmHg 02/21/2013 Weight 169.00 lb BP Systolic 140 mmHg BP Diastolic 70 mmHg 01/30/2013 Weight 170.00 lb BP Systolic 130 mmHg BP Diastolic 66 mmHg 07/10/2012 Weight 187.00 lb w/ coat BP Systolic 158 mmHg BP Diastolic 70 mmHg 06/24/2012 Weight 182.00 lb BP Systolic 140 mmHg BP Diastolic 68 mmHg Height 68.25 inches 5'8.25" BMI (Body Mass Index) 27.5 kg/m2 06/10/2012 Weight 181.00 lb BP Systolic 130 mmHg BP Diastolic 70 mmHg Height 68.25 inches 5'8.25" BMI (Body Mass Index) 27.3 kg/m2 05/15/2012 Weight 178.00 lb BP Systolic 140 mmHg BP Diastolic 66 mmHg Height 68.25 inches 5'8.25" Heart Rate 68 /min Body Temperature 98.1 F Respiratory Rate 16 /min BMI (Body Mass Index) 26.9 kg/m2 02/01/2012 Weight 176.00 lb BP Systolic 138 mmHg BP Diastolic 76 mmHg Height 68 inches 5'8" Heart Rate 60 /min Body Temperature 98.7 F Respiratory Rate 16 /min BMI (Body Mass Index) 26.8 kg/m2 11/02/2011 Weight 176.00 lb BP Systolic 136 mmHg BP Diastolic 76 mmHg Height 68 inches 5'8" BMI (Body Mass Index) 26.8 kg/m2 07/24/2011 Weight 179.50 lb BP Systolic 148 mmHg Pt just off work; no meds this a.m. BP Diastolic 74 mmHg Pt just off work; no meds this a.m. Height 68 inches 5'8" BMI (Body Mass Index) 27.3 kg/m2 Results Test Date Test Result H/L Range Note Microalbumin,Random Urine 10/18/2017 Microalbumin,Urine 15.0 mg/L < 20.0 1 Laboratory test finding 10/18/2017 Glycohemoglobin A1c <pending> 1 Prostate Specific Antigen 10/15/2017 PSA (Jacobson Loci) 4.05 ng/mL < 4.0 2 , 3 Reflex add FT4? Y 2 Glycohemoglobin A1c 10/15/2017 Glycohemoglobin (A1c) 6.4 % High 4.2-6.3 2 , 4 eAG 137 mg/dL 2 Comprehensive Metabolic Panel 10/15/2017 Glucose 76 mg/dL 74-106 2 BUN 23 mg/dL High 7-18 2 Creatinine 1.3 mg/dL 0.6-1.3 2 Glom Filtration Rate, Estimate 58 mL/min >60 2 If >60 mL/min >60 2, 5 BUN/Creat 17.6 ratio 2 Sodium 139 mmol/L 136-145 2 Potassium 4.5 mmol/L 3.5-5.1 2 Chloride 103 mmol/L 98-107 2 Carbon Dioxide 28 mmol/L 21-32 2 Anion Gap 8 mEq/L 8-16 2 Calcium 9.4 mg/dL 8.5-10.1 2 Total Protein 7.5 g/dL 6.4-8.2 2 Albumin 4.0 g/dL 3.4-5.0 2 Globulin 3.5 g/dL 1.9-4.3 2 Alb/Glob 1.1 ratio 2 Bilirubin,Total 0.5 mg/dL 0.2-1.0 2 Sgot/Ast 23 U/L 15-37 2 SGPT/Alt 25 U/L 12-78 2 Alkaline Phosphatase 48 U/L 45-117 2 Reflex add FT4? Y 2 LDL Cholesterol Profile 10/15/2017 Cholesterol 137 mg/dL <200 2, 6 Triglycerides 115 mg/dL <150 2, 7 HDL Cholesterol 39 mg/dL Low >40 2, 8 LDL-Cholesterol 75 mg/dL < 100 2, 9 Reflex add FT4? Y 2 TSH Reflex FT4 And/Or FT3 10/15/2017 Thyroid Stim Hormone 2.55 uIU/mL 0.30-4.20 2 Reflex add FT4? Y 2 CBC 10/15/2017 White Blood Count 4.6 K/uL 3.4-10.5 2 Red Blood Count 3.94 M/uL Low 4.20-5.80 2 Hemoglobin 11.7 gm/dL Low 12.8-17.0 2 Hematocrit 36.4 % Low 38.0-48.0 2 Mean Cell Volume 92.4 fl 80.0-96.0 2 Mean Corpuscular HGB 29.7 pg 27.0-33.0 2 Mean Corpuscular HGB Conc 32.1 g/dL 31.7-36.0 2 Platelet Count 174 K/uL 155-360 2 Red Cell Distri Width %CV 14.9 % 11.6-15.8 2 Mean Platelet Volume 10.3 fL 6.6-10.6 2 Differential-WBC Confirm 08/17/2017 Total Cells Counted 100 #CELLS 10 Band% 3 % 0-8 10 Neutrophils% 73 % 33-73 10 Lymph% 20 % 20-42 10 Monocyte% 4 % 0-10 10 Platelet Estimate SLIGHT DECREASE 10 RBC Morphology NORMAL 10 Basic Metabolic Panel 08/17/2017 Glucose 210 mg/dL High 74-106 10 BUN 27 mg/dL High 7-18 10 Creatinine 1.2 mg/dL 0.6-1.3 10 Glom Filtration Rate, Estimate >60 mL/min >60 10 If >60 mL/min >60 10, 11 BUN/Creat 22.5 ratio 10 Sodium 141 mmol/L 136-145 10 Potassium 4.4 mmol/L 3.5-5.1 10 Chloride 107 mmol/L 98-107 10 Carbon Dioxide 26 mmol/L 21-32 10 Anion Gap 8 mEq/L 8-16 10 Calcium 8.5 mg/dL 8.5-10.1 10 Laboratory test finding 08/17/2017 CK 725 U/L High 39-308 10 Glycohemoglobin A1c 08/17/2017 Glycohemoglobin (A1c) 6.5 % High 4.2-6.3 10, 12 eAG 140 mg/dL 10 CBS W/Automated Diff 08/17/2017 White Blood Count 3.5 K/uL 3.4-10.5 10 Red Blood Count 3.78 M/uL Low 4.20-5.80 10 Hemoglobin 11.2 gm/dL Low 12.8-17.0 10 Hematocrit 34.2 % Low 38.0-48.0 10 Mean Cell Volume 90.5 fl 80.0-96.0 10 Mean Corpuscular HGB 29.6 pg 27.0-33.0 10 Mean Corpuscular HGB Conc 32.7 g/dL 31.7-36.0 10 Platelet Count 125 K/uL Low 155-360 10 Red Cell Distri Width SD 46.1 fl 36-51 10 Red Cell Distri Width %CV 14.5 % 11.6-15.8 10 Mean Platelet Volume 10.3 fL 6.6-10.6 10, 13 Neut# 2.84 K/uL 1.8-7.0 10 Lymph # 0.58 K/uL Low 1.0-4.0 10 Gregg # 0.12 K/uL 0.0-0.8 10 Eos # 0.00 K/uL 0.0-0.5 10 Baso # 0.00 K/uL 0.0-0.1 10 Laboratory test finding 08/17/2017 Slide Review DIFF ORDERED 10 Ua RFX Micro & Culture II 08/16/2017 Urine Color YELLOW Yellow 14 Urine Clarity CLEAR Clear 14 Urine Glucose - Dipstick NEGATIVE mg/dL Negative 14 Urine Bilirubin - Dipstick NEGATIVE Negative 14 Urine Ketone TRACE mg/dL High Negative 14 Urine Specific [place] 1.010 1.010-1.030 14 Urine Blood TRACE Negative 14 Urine PH 5.5 Low 6.5-7.5 14 Urine Protein - Dipstick NEGATIVE mg/dL Negative 14 Urine Urobilinogen - Dipstick 0.2 E.U./dL 0.2-1.0 14 Urine Nitrite - Dipstick NEGATIVE Negative 14 Urine Leuk Esterase NEGATIVE Negative 14 Source: URINE, CLEAN CAT <SEE NOTE> 14, 15 Aot Request 08/16/2017 Aot Request Test(s) added 14, 16 Tests to be added: BNP 14 CBS W/Automated Diff 08/16/2017 White Blood Count 5.5 K/uL 3.4-10.5 14 Red Blood Count 4.15 M/uL Low 4.20-5.80 14 Hemoglobin 12.4 gm/dL Low 12.8-17.0 14 Hematocrit 37.7 % Low 38.0-48.0 14 Mean Cell Volume 90.8 fl 80.0-96.0 14 Mean Corpuscular HGB 29.9 pg 27.0-33.0 14 Mean Corpuscular HGB Conc 32.9 g/dL 31.7-36.0 14 Platelet Count 125 K/uL Low 155-360 14 Red Cell Distri Width SD 48.6 fl 36-51 14 Red Cell Distri Width %CV 14.9 % 11.6-15.8 14 Mean Platelet Volume 10.4 fL 6.6-10.6 14 Neut% 57.3 % 33.0-73.0 14 Lymph % 30.7 % 20.0-42.0 14 Gregg % 11.6 % High 0.0-10.0 14 Eo% 0.2 % 0.0-6.6 14 Bas% 0.2 % 0.0-1.1 14 Neut# 3.18 K/uL 1.8-7.0 14 Lymph # 1.70 K/uL 1.0-4.0 14 Gregg # 0.64 K/uL 0.0-0.8 14 Eos # 0.01 K/uL 0.0-0.5 14 Baso # 0.01 K/uL 0.0-0.1 14 Comprehensive Metabolic Panel 08/16/2017 Glucose 133 mg/dL High 74-106 14 BUN 32 mg/dL High 7-18 14 Creatinine 1.7 mg/dL High 0.6-1.3 14 Glom Filtration Rate, Estimate 42 mL/min >60 14 If 51 mL/min >60 14, 17 BUN/Creat 18.8 ratio 14 Sodium 137 mmol/L 136-145 14 Potassium 3.7 mmol/L 3.5-5.1 14 Chloride 102 mmol/L 98-107 14 Carbon Dioxide 25 mmol/L 21-32 14 Anion Gap 10 mEq/L 8-16 14 Calcium 9.0 mg/dL 8.5-10.1 14 Total Protein 8.1 g/dL 6.4-8.2 14 Albumin 4.1 g/dL 3.4-5.0 14 Globulin 4.0 g/dL 1.9-4.3 14 Alb/Glob 1.0 ratio 14 Bilirubin,Total 0.7 mg/dL 0.2-1.0 14 Sgot/Ast 54 U/L High 15-37 14 SGPT/Alt 36 U/L 12-78 14 Alkaline Phosphatase 46 U/L 45-117 14 Laboratory test finding 08/16/2017 CK 959 U/L High 39-308 14 NT-proBNP 102.0 pg/mL <125 14 Troponin-I < 0.015 ng/mL 14, 18 Glycohemoglobin A1c 06/15/2017 Glycohemoglobin (A1c) 6.9 % High 4.2-6.3 19, 20 eAG 151 mg/dL 19 Microalbumin,Random Urine 06/15/2017 Microalbumin,Urine < 5.0 mg/L < 20.0 19 TSH Reflex FT4 And/Or FT3 06/15/2017 Thyroid Stim Hormone 1.64 uIU/mL 0.30-4.20 19 Reflex add FT4? Y 19 Comprehensive Metabolic Panel 06/15/2017 Glucose 76 mg/dL 74-106 19 BUN 22 mg/dL High 7-18 19 Creatinine 1.2 mg/dL 0.6-1.3 19 Glom Filtration Rate, Estimate >60 mL/min >60 19 If >60 mL/min >60 19, 21 BUN/Creat 18.3 ratio 19 Sodium 140 mmol/L 136-145 19 Potassium 4.2 mmol/L 3.5-5.1 19 Chloride 107 mmol/L 98-107 19 Carbon Dioxide 28 mmol/L 21-32 19 Anion Gap 5 mEq/L Low 8-16 19 Calcium 9.7 mg/dL 8.5-10.1 19 Total Protein 7.8 g/dL 6.4-8.2 19 Albumin 4.3 g/dL 3.4-5.0 19 Globulin 3.5 g/dL 1.9-4.3 19 Alb/Glob 1.2 ratio 19 Bilirubin,Total 0.4 mg/dL 0.2-1.0 19 Sgot/Ast 32 U/L 15-37 19 SGPT/Alt 39 U/L 12-78 19 Alkaline Phosphatase 55 U/L 45-117 19 Reflex add FT4? Y 19 LDL Cholesterol Profile 06/15/2017 Cholesterol 144 mg/dL <200 19, 22 Triglycerides 116 mg/dL <150 19, 23 HDL Cholesterol 41 mg/dL >40 19, 24 LDL-Cholesterol 80 mg/dL < 100 19, 25 Reflex add FT4? Y 19 Iron-Tibc-%Sat 06/15/2017 Serum Iron 97 g/dL 65-175 19 Total Iron Binding Capacity 325 g/dL 250-450 19 Transferrin %Saturation 30 % 12-57 19 Reflex add FT4? Y 19 Vitamin B12 And Folate 06/15/2017 Vitamin B12 256 pg/mL 193-986 19 Folic Acid 12.8 ng/mL 3.1-17.5 19 Reflex add FT4? Y 19 Ferritin 06/15/2017 Ferritin 623 ng/mL High 26-388 19 Reflex add FT4? Y 19 Glycohemoglobin A1c 01/17/2017 Glycohemoglobin (A1c) 6.5 % High 4.2-6.3 26, 27 eAG 140 mg/dL 26 Comprehensive Metabolic Panel 01/17/2017 Glucose 89 mg/dL 74-106 26 BUN 17 mg/dL 7-18 26 Creatinine 1.1 mg/dL 0.6-1.3 26 Glom Filtration Rate, Estimate >60 mL/min >60 26 If >60 mL/min >60 26, 28 BUN/Creat 15.4 ratio 26 Sodium 142 mmol/L 136-145 26 Potassium 4.2 mmol/L 3.5-5.1 26 Chloride 108 mmol/L High 98-107 26 Carbon Dioxide 28 mmol/L 21-32 26 Anion Gap 6 mEq/L Low 8-16 26 Calcium 8.8 mg/dL 8.5-10.1 26 Total Protein 7.0 g/dL 6.4-8.2 26 Albumin 3.8 g/dL 3.4-5.0 26 Globulin 3.2 g/dL 1.9-4.3 26 Alb/Glob 1.2 ratio 26 Bilirubin,Total 0.4 mg/dL 0.2-1.0 26 Sgot/Ast 26 U/L 15-37 26 SGPT/Alt 26 U/L 12-78 26 Alkaline Phosphatase 44 U/L Low 45-117 26 Reflex add FT3? Y 26 Reflex add FT4? Y 26 Microalbumin,Random Urine 01/17/2017 Microalbumin,Urine < 5.0 mg/L < 20.0 26 CBC 01/17/2017 White Blood Count 4.4 K/uL 3.4-10.5 26 Red Blood Count 3.95 M/uL Low 4.20-5.80 26 Hemoglobin 11.7 gm/dL Low 12.8-17.0 26 Hematocrit 36.3 % Low 38.0-48.0 26 Mean Cell Volume 91.9 fl 80.0-96.0 26 Mean Corpuscular HGB 29.6 pg 27.0-33.0 26 Mean Corpuscular HGB Conc 32.2 g/dL 31.7-36.0 26 Platelet Count 158 K/uL 150-400 26 Red Cell Distri Width %CV 13.9 % 11.6-15.8 26 Mean Platelet Volume 10.5 fL 6.6-10.6 26 LDL Cholesterol Profile 01/17/2017 Cholesterol 116 mg/dL <200 26, 29 Triglycerides 106 mg/dL <150 26, 30 HDL Cholesterol 37 mg/dL Low >40 26, 31 LDL-Cholesterol 58 mg/dL < 100 26, 32 Reflex add FT3? Y 26 Reflex add FT4? Y 26 TSH Reflex FT4 And/Or 01/17/2017 Thyroid Stim Hormone 4.92 uIU/mL High 0.30-4.20 26 FT3 Reflex add FT3? Y 26 Reflex add FT4? Y 26 Free T3 01/17/2017 Free T3 2.39 pg/mL 2.18-3.98 26 Reflex add FT3? Y 26 Reflex add FT4? Y 26 Free T4 01/17/2017 Free T4 0.89 ng/dL 0.76-1.46 26 Reflex add FT3? Y 26 Reflex add FT4? Y 26 Laboratory test 10/06/2016 C-Reactive 1.18 mg/L <3.0 33 finding Protein,Cardiac Homocyst(E)Ine, 10/06/2016 Homocyst(e)ine, P/S 16.1 umol/L High 0.0-15.0 33, 34 P/S Laboratory test 10/06/2016 Prostate Specific 4.48 ng/mL < 4.0 33, 35 finding Antigen CBC 10/06/2016 White Blood Count 4.8 K/uL 3.4-10.5 33 Red Blood Count 4.14 M/uL Low 4.20-5.80 33 Hemoglobin 12.3 gm/dL Low 12.8-17.0 33 Hematocrit 38.3 % 38.0-48.0 33 Mean Cell Volume 92.5 fl 80.0-96.0 33 Mean Corpuscular HGB 29.7 pg 27.0-33.0 33 Mean Corpuscular HGB Conc 32.1 g/dL 31.7-36.0 33 Platelet Count 174 K/uL 150-400 33 Red Cell Distri Width %CV 14.0 % 11.6-15.8 33 Mean Platelet Volume 10.3 fL 6.6-10.6 33 Comprehensive Metabolic Panel 10/06/2016 Glucose 100 mg/dL 74-106 33 BUN 16 mg/dL 7-18 33 Creatinine 1.2 mg/dL 0.6-1.3 33 Glom Filtration Rate, Estimate >60 mL/min >60 33 If >60 mL/min >60 33, 36 BUN/Creat 13.3 ratio 33 Sodium 141 mmol/L 136-145 33 Potassium 4.6 mmol/L 3.5-5.1 33 Chloride 107 mmol/L 98-107 33 Carbon Dioxide 27 mmol/L 21-32 33 Anion Gap 7 mEq/L Low 8-16 33 Calcium 8.7 mg/dL 8.5-10.1 33 Total Protein 7.5 g/dL 6.4-8.2 33 Albumin 4.0 g/dL 3.4-5.0 33 Globulin 3.5 g/dL 1.9-4.3 33 Alb/Glob 1.1 ratio 33 Bilirubin,Total 0.5 mg/dL 0.2-1.0 33 Sgot/Ast 26 U/L 15-37 33 SGPT/Alt 30 U/L 12-78 33 Alkaline Phosphatase 49 U/L 45-117 33 Glycohemoglobin A1c 10/06/2016 Glycohemoglobin (A1c) 6.4 % High 4.2-6.3 33, 37 eAG 137 mg/dL 33 LDL Cholesterol Profile 10/06/2016 Cholesterol 125 mg/dL <200 33, 38 Triglycerides 147 mg/dL <150 33, 39 HDL Cholesterol 37 mg/dL Low >40 33, 40 LDL-Cholesterol 59 mg/dL < 100 33, 41 Laboratory test 10/06/2016 Vitamin D,25-Hydroxy 15.7 ng/mL Low 30.0-100.0 33, 42 finding Comprehensive 05/27/2016 Glucose 79 mg/dL 74-106 43 Metabolic Panel BUN 18 mg/dL 7-18 43 Creatinine 1.3 mg/dL 0.6-1.3 43 Glom Filtration Rate, Estimate 58 mL/min >60 43 If >60 mL/min >60 43, 44 BUN/Creat 13.8 ratio 43 Sodium 141 mmol/L 136-145 43 Potassium 4.3 mmol/L 3.5-5.1 43 Chloride 108 mmol/L High 98-107 43 Carbon Dioxide 25 mmol/L 21-32 43 Anion Gap 8 mEq/L 8-16 43 Calcium 8.9 mg/dL 8.5-10.1 43 Total Protein 7.6 g/dL 6.4-8.2 43 Albumin 4.3 g/dL 3.4-5.0 43 Globulin 3.3 g/dL 1.9-4.3 43 Alb/Glob 1.3 ratio 43 Bilirubin,Total 0.5 mg/dL 0.2-1.0 43 Sgot/Ast 25 U/L 15-37 43 SGPT/Alt 22 U/L 12-78 43 Alkaline Phosphatase 46 U/L 45-117 43 Glycohemoglobin A1c 05/27/2016 Glycohemoglobin (A1c) 6.3 % 4.2-6.3 43, 45 eAG 134 mg/dL 43 Microalbumin,Random Urine 05/27/2016 Microalbumin,Urine 7.4 mg/L < 20.0 43 LDL Cholesterol Profile 05/27/2016 Cholesterol 132 mg/dL <200 43, 46 Triglycerides 100 mg/dL <150 43, 47 HDL Cholesterol 42 mg/dL >40 43, 48 LDL-Cholesterol 70 mg/dL < 100 43, 49 Glycohemoglobin A1c 04/10/2016 Glycohemoglobin (A1c) 5.8 % 4.2-6.3 43, 50 eAG 120 mg/dL [address] Pat Id: [id number] [address] Req #: [id number] 43 CBC 02/28/2016 White Blood Count 8.3 K/uL 3.4-10.5 51 Red Blood Count 4.25 M/uL 4.20-5.80 51 Hemoglobin 12.4 gm/dL Low 12.8-17.0 51 Hematocrit 38.0 % 38.0-48.0 51 Mean Cell Volume 89.4 fl 80.0-96.0 51 Mean Corpuscular HGB 29.2 pg 27.0-33.0 51 Mean Corpuscular HGB Conc 32.6 g/dL 31.7-36.0 51 Platelet Count 228 K/uL 150-400 51 Red Cell Distri Width %CV 14.4 % 11.6-15.8 51 Mean Platelet Volume 9.6 fL 6.6-10.6 51 @[facility] Pat Id: [id number] 51 @[facility] Req #: [id number] 51 Lipid Panel 02/28/2016 Cholesterol 117 mg/dL <200 51, 52 Triglycerides 84 mg/dL <150 51, 53 HDL Cholesterol 38 mg/dL Low >40 51, 54 LDL-Cholesterol 62 mg/dL < 100 51, 55 @[facility] Pat Id: [id number] 51 @[facility] Req #: [id number] 51 Is Patient Fasting? Fasting 51 Microalbumin,Random Urine 02/28/2016 Microalbumin,Urine 18.3 mg/L < 20.0 [address] Pat Id: [id number] 51 @[facility] Req #: [id number] 51 Comprehensive Metabolic Panel 02/28/2016 Glucose 97 mg/dL 74-106 51 BUN 21 mg/dL High 7-18 51 Creatinine 1.4 mg/dL High 0.6-1.3 51 Glom Filtration Rate, Estimate 53 mL/min >60 51 If >60 mL/min >60 51, 56 BUN/Creat 15.0 ratio 51 Sodium 139 mmol/L 136-145 51 Potassium 4.2 mmol/L 3.5-5.1 51 Chloride 105 mmol/L 98-107 51 Carbon Dioxide 27 mmol/L 21-32 51 Anion Gap 7 mEq/L Low 8-16 51 Calcium 9.5 mg/dL 8.5-10.1 51 Total Protein 7.3 g/dL 6.4-8.2 51 Albumin 4.1 g/dL 3.4-5.0 51 Globulin 3.2 g/dL 1.9-4.3 51 Alb/Glob 1.3 ratio 51 Bilirubin,Total 0.5 mg/dL 0.2-1.0 51 Sgot/Ast 27 U/L 15-37 51 SGPT/Alt 41 U/L 12-78 51 Alkaline Phosphatase 46 U/L 45-117 51 @[facility] Id: [id number] 51 @[facility] #: [id number] 51 Is Patient Fasting? Fasting 51 Laboratory test finding 11/17/2015 Point of Care Glucose 69 mg/dL Low 74- 106 57 Laboratory test finding 11/10/2015 Point of Care Glucose 84 mg/dL 74-106 58 Glycohemoglobin A1c 10/28/2015 Glycohemoglobin (A1c) 5.9 % 4.2-6.3 59 eAG 123 mg/dL Glycohemoglobin A1c 06/17/2015 Glycohemoglobin (A1c) 6.2 % 4.2-6.3 60 eAG 131 mg/dL Laboratory test finding 06/17/2015 Microalbumin,Random Urine 7.7 mg/L < 20.0 61 Comprehensive Metabolic 06/17/2015 Glucose 62 mg/dL Low 74-106 Panel BUN 17 mg/dL 7-18 Creatinine 1.1 mg/dL 0.6-1.3 Glom Filtration Rate, Estimate >60 mL/min >60 If >60 mL/min >60 62 BUN/Creat 15.4 ratio Sodium 139 mmol/L 136-145 Potassium 4.3 mmol/L 3.5-5.1 Chloride 107 mmol/L 98-107 Carbon Dioxide 28 mmol/L 21-32 Anion Gap 4 mEq/L Low 8-16 Calcium 8.9 mg/dL 8.5-10.1 Total Protein 7.0 g/dL 6.4-8.2 Albumin 3.7 g/dL 3.4-5.0 Globulin 3.3 g/dL 1.9-4.3 Alb/Glob 1.1 ratio Bilirubin,Total 0.4 mg/dL 0.2-1.0 Sgot/Ast 18 U/L 15-37 SGPT/Alt 25 U/L 12-78 Alkaline Phosphatase 47 U/L 45-117 LDL Cholesterol Profile 06/17/2015 Cholesterol 114 mg/dL <200 63 Triglycerides 98 mg/dL <150 64 HDL Cholesterol 31 mg/dL Low >40 65 LDL-Cholesterol 63 mg/dL < 100 66 Laboratory test finding 06/17/2015 Prostate Specific Antigen 2.52 ng/mL 67 LDL Cholesterol Profile 01/05/2015 Cholesterol 126 mg/dL < 200 68 Triglycerides 169 mg/dL < 150 69 HDL Cholesterol 30 mg/dL > 40 70 LDL-Cholesterol 62 mg/dL < 100 71 Glycohemoglobin A1c 01/05/2015 Glycohemoglobin (A1c) 7.5 % High 4.2-6.3 72 eAG 169 mg/dL Comprehensive Metabolic Panel 01/05/2015 Glucose 72 mg/dL Low 74-106 BUN 19 mg/dL High 7-18 Creatinine 1.2 mg/dL 0.6-1.3 Glom Filtration Rate, Estimate >60 mL/min >60 If >60 mL/min >60 73 BUN/Creat 15.8 ratio Sodium 139 mmol/L 136-145 Potassium 4.5 mmol/L 3.5-5.1 Chloride 104 mmol/L 98-107 Carbon Dioxide 27 mmol/L 21-32 Anion Gap 8 mEq/L 8-16 Calcium 9.5 mg/dL 8.5-10.1 Total Protein 7.7 g/dL 6.4-8.2 Albumin 4.2 g/dL 3.4-5.0 Globulin 3.5 g/dL 1.9-4.3 Alb/Glob 1.2 ratio Bilirubin,Total 0.4 mg/dL 0.2-1.0 Sgot/Ast 24 U/L 15-37 SGPT/Alt 33 U/L 12-78 Alkaline Phosphatase 56 U/L 45-117 Laboratory test finding 01/05/2015 Microalbumin,Random Urine < 5.0 mg/L < 20.0 CBC 12/07/2014 White Blood Count 5.5 K/uL 3.4-10.5 Red Blood Count 4.69 M/uL 4.20-5.80 Hemoglobin 13.4 gm/dL 12.8-17.0 Hematocrit 41.7 % 38.0-48.0 Mean Cell Volume 88.9 fl 80.0-96.0 Mean Corpuscular HGB 28.6 pg 27.0-33.0 Mean Corpuscular HGB Conc 32.1 g/dL 31.7-36.0 Platelet Count 166 K/uL 150-400 Red Cell Distri Width %CV 14.1 % 11.6-15.8 Mean Platelet Volume 10.2 fL 6.6-10.6 Comprehensive Metabolic Panel 12/07/2014 Glucose 139 mg/dL High 74-106 BUN 25 mg/dL High 7-18 Creatinine 1.3 mg/dL 0.6-1.3 Glom Filtration Rate, Estimate 58 mL/min >60 If >60 mL/min >60 74 BUN/Creat 19.2 ratio Sodium 136 mmol/L 136-145 Potassium 4.4 mmol/L 3.5-5.1 Chloride 101 mmol/L 98-107 Carbon Dioxide 27 mmol/L 21-32 Anion Gap 8 mEq/L 8-16 Calcium 9.0 mg/dL 8.5-10.1 Total Protein 7.4 g/dL 6.4-8.2 Albumin 4.2 g/dL 3.4-5.0 Globulin 3.2 g/dL 1.9-4.3 Alb/Glob 1.3 ratio Bilirubin,Total 0.4 mg/dL 0.2-1.0 Sgot/Ast 21 U/L 15-37 SGPT/Alt 25 U/L 12-78 Alkaline Phosphatase 58 U/L 45-117 LDL Cholesterol Profile 12/07/2014 Cholesterol 124 mg/dL < 200 75 Triglycerides 224 mg/dL < 150 76 HDL Cholesterol 24 mg/dL > 40 77 LDL-Cholesterol 55 mg/dL < 100 78 Laboratory test 12/07/2014 Microalbumin,Random Urine < 5.0 mg/L < 20.0 finding Glycohemoglobin A1c 12/07/2014 Glycohemoglobin (A1c) 8.0 % High 4.2-6.3 79 eAG 183 mg/dL Glycohemoglobin A1c 09/08/2014 Glycohemoglobin (A1c) 8.8 % High 4.2-6.3 80 eAG 206 mg/dL Laboratory test finding 08/14/2014 Prostate Specific Antigen 2.83 ng/mL 81 CBC W/Automated Diff 08/14/2014 White Blood Count 5.4 K/uL 3.4-10.5 Red Blood Count 4.78 M/uL 4.20-5.80 Hemoglobin 13.8 gm/dL 12.8-17.0 Hematocrit 42.5 % 38.0-48.0 Mean Cell Volume 88.9 fl 80.0-96.0 Mean Corpuscular HGB 28.9 pg 27.0-33.0 Mean Corpuscular HGB Conc 32.5 g/dL 31.7-36.0 Platelet Count 166 K/uL 150-400 Red Cell Distri Width SD 44.1 fl 36-51 Red Cell Distri Width %CV 13.9 % 11.6-15.8 Mean Platelet Volume 10.3 fL 6.6-10.6 Neut% 64.5 % 33.0-73.0 Lymph % 23.6 % 17.0-56.0 Gregg % 8.7 % 0.0-10.0 Eo% 2.6 % 0.0-5.0 Bas% 0.6 % 0.1-1.0 Neut# 3.50 K/uL 1.8-7.0 Lymph # 1.28 K/uL 1.2-4.0 Gregg # 0.47 K/uL 0.0-0.6 Eos # 0.14 K/uL 0.0-0.5 Baso # 0.03 K/uL Low 0.1-0.2 Comprehensive Metabolic Panel 08/14/2014 Glucose 169 mg/dL High 74-106 BUN 16 mg/dL 7-18 Creatinine 1.2 mg/dL 0.6-1.3 Glom Filtration Rate, Estimate >60 mL/min >60 If >60 mL/min >60 82 BUN/Creat 13.3 ratio Sodium 140 mmol/L 136-145 Potassium 4.4 mmol/L 3.5-5.1 Chloride 104 mmol/L 98-107 Carbon Dioxide 29 mmol/L 21-32 Anion Gap 11 mEq/L 8-16 Calcium 9.1 mg/dL 8.5-10.1 Total Protein 7.8 g/dL 6.4-8.2 Albumin 4.3 g/dL 3.4-5.0 Globulin 3.5 g/dL 1.9-4.3 Alb/Glob 1.2 ratio Bilirubin,Total 0.4 mg/dL 0.2-1.0 Sgot/Ast 28 U/L 15-37 SGPT/Alt 37 U/L 12-78 Alkaline Phosphatase 82 U/L 45-117 LDL Cholesterol Profile 08/14/2014 Cholesterol 163 mg/dL < 200 83 Triglycerides 298 mg/dL < 150 84 HDL Cholesterol 26 mg/dL > 40 85 LDL-Cholesterol 77 mg/dL < 100 86 Laboratory test 08/14/2014 Microalbumin,Random Urine < 5.0 mg/L < 20.0 finding Hemoglobin A1c 08/14/2014 Glycohemoglobin (A1c) 9.3 % High 4.2-6.3 87 eAG 220 mg/dL CBS W/Automated Diff 05/13/2014 White Blood Count 6.0 K/uL 3.4-10.5 Red Blood Count 4.66 M/uL 4.20-5.80 Hemoglobin 13.7 gm/dL 12.8-17.0 Hematocrit 41.3 % 38.0-48.0 Mean Cell Volume 88.6 fl 80.0-96.0 Mean Corpuscular HGB 29.4 pg 27.0-33.0 Mean Corpuscular HGB Conc 33.2 g/dL 31.7-36.0 Platelet Count 172 K/uL 150-400 Red Cell Distri Width SD 43.0 fl 36-51 Red Cell Distri Width %CV 13.5 % 11.6-15.8 Mean Platelet Volume 10.7 fL High 6.6-10.6 Neut% 65.7 % 33.0-73.0 Lymph % 24.5 % 17.0-56.0 Gregg % 8.0 % 0.0-10.0 Eo% 1.3 % 0.0-5.0 Bas% 0.5 % 0.1-1.0 Neut# 3.92 K/uL 1.8-7.0 Lymph # 1.46 K/uL 1.2-4.0 Gregg # 0.48 K/uL 0.0-0.6 Eos # 0.08 K/uL 0.0-0.5 Baso # 0.03 K/uL Low 0.1-0.2 Comprehensive Metabolic Panel 05/13/2014 Glucose 129 mg/dL High 74-106 BUN 20 mg/dL High 7-18 Creatinine 1.2 mg/dL 0.6-1.3 Glom Filtration Rate, Estimate >60 mL/min >60 If >60 mL/min >60 88 BUN/Creat 16.6 ratio Sodium 138 mmol/L 136-145 Potassium 4.1 mmol/L 3.5-5.1 Chloride 104 mmol/L 98-107 Carbon Dioxide 22 mmol/L 21-32 Anion Gap 16 mEq/L 8-16 Calcium 9.5 mg/dL 8.5-10.1 Total Protein 7.3 g/dL 6.4-8.2 Albumin 4.4 g/dL 3.4-5.0 Globulin 2.9 g/dL 1.9-4.3 Alb/Glob 1.5 ratio Bilirubin,Total 0.6 mg/dL 0.2-1.0 Sgot/Ast 26 U/L 15-37 SGPT/Alt 38 U/L 12-78 Alkaline Phosphatase 67 U/L 45-117 LDL Cholesterol Profile 05/13/2014 Cholesterol 163 mg/dL 89 Triglycerides 265 mg/dL 90 HDL Cholesterol 27 mg/dL 91 LDL-Cholesterol 83 mg/dL 92 Laboratory test 05/13/2014 Microalbumin,Random Urine < 6.0 mg/L < 20.0 finding Glycohemoglobin A1c 05/13/2014 Glycohemoglobin (A1c) 8.8 % High 4.2-6.3 93 eAG 206 mg/dL Glycohemoglobin A1c 01/27/2014 Glycohemoglobin (A1c) 8.6 % High 4.8-6.0 94 eAG 200 mg/dL Laboratory test finding 01/27/2014 Microalbumin,Random Urine 8.5 mg/L 0.0 -18.5 Uric Acid 3.8 mg/dL 2.1-7.4 CBS W/Automated Diff 10/30/2013 White Blood Count 6.0 K/uL 3.4-10.5 Red Blood Count 3.92 M/uL Low 4.20-5.80 Hemoglobin 11.4 gm/dL Low 12.8-17.0 Hematocrit 35.0 % Low 38.0-48.0 Mean Cell Volume 89.3 fl 80.0-96.0 Mean Corpuscular HGB 29.1 pg 27.0-33.0 Mean Corpuscular HGB Conc 32.6 g/dL 31.7-36.0 Platelet Count 158 K/uL 150-400 Red Cell Distri Width SD 45.9 fl 36-51 Red Cell Distri Width %CV 14.3 % 11.6-15.8 Mean Platelet Volume 10.1 fL 6.6-10.6 Neut% 71.3 % 33.0-73.0 Lymph % 18.6 % 17.0-56.0 Gregg % 8.7 % 0.0-10.0 Eo% 1.2 % 0.0-5.0 Bas% 0.2 % 0.1-1.0 Neut# 4.29 K/uL 1.8-7.0 Lymph # 1.12 K/uL Low 1.2-4.0 Gregg # 0.52 K/uL 0.0-0.6 Eos # 0.07 K/uL 0.0-0.5 Baso # 0.01 K/uL Low 0.1-0.2 Laboratory test finding 10/30/2013 LDH 153 U/L Low 165-265 Laboratory test finding 10/30/2013 Uric Acid 5.4 mg/dL 2.1-7.4 Glycohemoglobin A1c 10/30/2013 Glycohemoglobin (A1c) 8.5 % High 4.8-6.0 95 eAG 197 mg/dL Comprehensive Metabolic Panel 10/30/2013 Glucose 140 mg/dL High 76-115 BUN 18 mg/dL 5-23 Creatinine 1.2 mg/dL 0.5-1.4 Glom Filtration Rate, Estimate >60 mL/min >60 If >60 mL/min >60 96 BUN/Creat 15.0 ratio Sodium 139 mmol/L 136-145 Potassium 4.1 mmol/L 3.5-5.1 Chloride 103 mmol/L 98-107 Carbon Dioxide 27 mEq/L 18-29 Anion Gap 13 mEq/L 8-16 Calcium 9.2 mg/dL 8.5-10.1 Total Protein 6.9 g/dL 6.3-8.0 Albumin 4.2 g/dL 3.5-5.0 Globulin 2.7 g/dL 1.9-4.3 Alb/Glob 1.6 ratio Bilirubin,Total 0.5 mg/dL 0.2-1.2 Sgot/Ast 20 U/L 16-40 SGPT/Alt 28 U/L Low 30-65 Alkaline Phosphatase 56 U/L 50-136 LDL Cholesterol Profile 10/30/2013 Cholesterol 134 mg/dL 120-200 Triglycerides 159 mg/dL 16-231 HDL Cholesterol 27 mg/dL Low 29-83 LDL-Cholesterol 75 mg/dL 62-185 Laboratory test 10/30/2013 Microalbumin,Random Urine 6.6 mg/L 0.0-18.5 finding Comprehensive 07/17/2013 Glucose 164 mg/dL High 76-115 Metabolic Panel BUN 22 mg/dL 5-23 Creatinine 1.4 mg/dL 0.5-1.4 Glom Filtration Rate, Estimate 54 mL/min >60 If >60 mL/min >60 97 BUN/Creat 15.7 ratio Sodium 137 mmol/L 136-145 Potassium 4.2 mmol/L 3.5-5.1 Chloride 105 mmol/L 98-107 Carbon Dioxide 26 mEq/L 18-29 Anion Gap 10 mEq/L 8-16 Calcium 9.2 mg/dL 8.5-10.1 Total Protein 6.9 g/dL 6.3-8.0 Albumin 4.3 g/dL 3.5-5.0 Globulin 2.6 g/dL 1.9-4.3 Alb/Glob 1.7 ratio Bilirubin,Total 0.4 mg/dL 0.2-1.2 Sgot/Ast 30 U/L 16-40 SGPT/Alt 45 U/L 30-65 Alkaline Phosphatase 57 U/L 50-136 Glycohemoglobin A1c 07/17/2013 Glycohemoglobin (A1c) 7.5 % High 4.8-6.0 98 eAG 169 mg/dL Laboratory test finding 07/17/2013 LDH 147 U/L Low 165-265 CBS W/Automated Diff 07/17/2013 White Blood Count 5.7 K/uL 3.4-10.5 Red Blood Count 4.08 M/uL Low 4.20-5.80 Hemoglobin 11.5 gm/dL Low 12.8-17.0 Hematocrit 35.7 % Low 38.0-48.0 Mean Cell Volume 87.5 fl 80.0-96.0 Mean Corpuscular HGB 28.2 pg 27.0-33.0 Mean Corpuscular HGB Conc 32.2 g/dL 31.7-36.0 Platelet Count 180 K/uL 150-400 Red Cell Distri Width SD 40.7 fl 36-51 Red Cell Distri Width %CV 13.2 % 11.6-15.8 Mean Platelet Volume 9.8 fL 6.6-10.6 Neut% 76.5 % High 33.0-73.0 Lymph % 15.2 % Low 17.0-56.0 Gregg % 6.7 % 0.0-10.0 Eo% 1.4 % 0.0-5.0 Bas% 0.2 % 0.1-1.0 Neut# 4.34 K/uL 1.8-7.0 Lymph # 0.86 K/uL Low 1.2-4.0 Gregg # 0.38 K/uL 0.0-0.6 Eos # 0.08 K/uL 0.0-0.5 Baso # 0.01 K/uL Low 0.1-0.2 Differential-WBC Confirm 04/17/2013 Total Cells Counted 100 #CELLS Band% 5 % 0-8 Neutrophils% 75 % High 33-73 Lymph% 12 % Low 17-56 Monocyte% 7 % 0-10 Basophil% 1 % 0-2 Platelet Estimate NORMAL RBC Morphology NORMAL CBC W/Automated Diff 04/17/2013 White Blood Count 5.1 K/uL 3.4-10.5 Red Blood Count 3.81 M/uL Low 4.20-5.80 Hemoglobin 11.1 gm/dL Low 12.8-17.0 Hematocrit 33.8 % Low 38.0-48.0 Mean Cell Volume 88.7 fl 80.0-96.0 Mean Corpuscular HGB 29.1 pg 27.0-33.0 Mean Corpuscular HGB Conc 32.8 g/dL 31.7-36.0 Platelet Count 227 K/uL 150-400 Red Cell Distri Width SD 45.1 fl 36-51 Red Cell Distri Width %CV 14.3 % 11.6-15.8 Mean Platelet Volume 9.4 fL 6.6-10.6 LDL Cholesterol Profile 04/17/2013 Cholesterol 184 mg/dL 120-200 Triglycerides 161 mg/dL 16-231 HDL Cholesterol 32 mg/dL 29-83 LDL-Cholesterol 120 mg/dL 62-185 Glycohemoglobin A1c 04/17/2013 Glycohemoglobin (A1c) 7.8 % High 4.8-6.0 99 eAG 177 mg/dL Comprehensive Metabolic Panel 04/17/2013 Glucose 110 mg/dL 76-115 BUN 16 mg/dL 5-23 Creatinine 0.9 mg/dL 0.5-1.4 Glom Filtration Rate, Estimate >60 mL/min >60 If >60 mL/min >60 100 BUN/Creat 17.7 ratio Sodium 138 mmol/L 136-145 Potassium 3.9 mmol/L 3.5-5.1 Chloride 102 mmol/L 98-107 Carbon Dioxide 27 mEq/L 18-29 Anion Gap 13 mEq/L 8-16 Calcium 9.3 mg/dL 8.5-10.1 Total Protein 6.9 g/dL 6.3-8.0 Albumin 3.7 g/dL 3.5-5.0 Globulin 3.2 g/dL 1.9-4.3 Alb/Glob 1.2 ratio Bilirubin,Total 0.4 mg/dL 0.2-1.2 Sgot/Ast 14 U/L Low 16-40 SGPT/Alt 25 U/L Low 30-65 Alkaline Phosphatase 62 U/L 50-136 LDL Cholesterol Profile 02/11/2013 Cholesterol 142 mg/dL 120-200 Triglycerides 267 mg/dL High 16-231 HDL Cholesterol 26 mg/dL Low 29-83 LDL-Cholesterol 63 mg/dL 62-185 Glycohemoglobin A1c 02/11/2013 Glycohemoglobin (A1c) 7.1 % High 4.8-6.0 101 eAG 157 mg/dL Comprehensive Metabolic Panel 02/11/2013 Glucose 171 mg/dL High 76-115 BUN 14 mg/dL 5-23 Creatinine 1.0 mg/dL 0.5-1.4 Glom Filtration Rate, Estimate >60 mL/min >60 If >60 mL/min >60 102 BUN/Creat 14.0 ratio Sodium 139 mmol/L 136-145 Potassium 3.8 mmol/L 3.5-5.1 Chloride 103 mmol/L 98-107 Carbon Dioxide 29 mEq/L 18-29 Anion Gap 11 mEq/L 8-16 Calcium 9.3 mg/dL 8.5-10.1 Total Protein 6.8 g/dL 6.3-8.0 Albumin 4.2 g/dL 3.5-5.0 Globulin 2.6 g/dL 1.9-4.3 Alb/Glob 1.6 ratio Bilirubin,Total 0.3 mg/dL 0.2-1.2 Sgot/Ast 15 U/L Low 16-40 SGPT/Alt 25 U/L Low 30-65 Alkaline Phosphatase 66 U/L 50-136 Laboratory test 02/11/2013 Microalbumin,Random Urine 39.0 mg/L High 0.0- 18.5 finding Laboratory test 08/13/2012 CK 114 U/L 26-190 103 finding Troponin-I < 0.02 ng/mL 0.00-0.50 104 Basic Metabolic Panel 08/13/2012 Glucose 184 mg/dL High 76-115 BUN 22 mg/dL 5-23 Creatinine 1.2 mg/dL 0.5-1.4 Glom Filtration Rate, Estimate >60 mL/min >60 If >60 mL/min >60 105 BUN/Creat 18.3 ratio Sodium 138 mmol/L 136-145 Potassium 4.0 mmol/L 3.5-5.1 Chloride 104 mmol/L 98-107 Carbon Dioxide 25 mEq/L 18-29 Anion Gap 13 mEq/L 8-16 Calcium 9.1 mg/dL 8.5-10.1 Laboratory test finding 08/13/2012 Breast Modif Rad Mastectomy See Note 106 Laboratory test finding 08/13/2012 Breast Modif Rad Mastectomy See Note 107 Type And Screen 08/13/2012 Patient Blood Type O NEG Antibody Screen Negative Negative Laboratory test finding 06/26/2012 Breast Biopsy - See Note 108 Permanent Only Glycohemoglobin A1c 05/17/2012 Glycohemoglobin (A1c) 7.3 % High 4.8-6.0 109 eAG 163 mg/dL Comprehensive Metabolic Panel 05/17/2012 Glucose 116 mg/dL High 76-115 BUN 25 mg/dL High 5-23 Creatinine 1.3 mg/dL 0.5-1.4 Glom Filtration Rate, Estimate 59 mL/min >60 If >60 mL/min >60 110 BUN/Creat 19.2 ratio Sodium 136 mmol/L 136-145 Potassium 4.4 mmol/L 3.5-5.1 Chloride 101 mmol/L 98-107 Carbon Dioxide 27 mEq/L 18-29 Anion Gap 12 mEq/L 8-16 Calcium 9.4 mg/dL 8.5-10.1 Total Protein 7.8 g/dL 6.3-8.0 Albumin 4.4 g/dL 3.5-5.0 Globulin 3.4 g/dL 1.9-4.3 Alb/Glob 1.3 ratio Bilirubin,Total 0.5 mg/dL 0.2-1.2 Sgot/Ast 20 U/L 16-40 SGPT/Alt 27 U/L Low 30-65 Alkaline Phosphatase 49 U/L Low 50-136 Laboratory test finding 05/17/2012 Microalbumin,Random Urine 15.9 mg/L 0.0-18.5 CBS W/Automated Diff 05/17/2012 White Blood Count 7.4 K/uL 3.4-10.5 Red Blood Count 4.52 M/uL 4.20-5.80 Hemoglobin 12.8 gm/dL 12.8-17.0 Hematocrit 38.8 % 38.0-48.0 Mean Cell Volume 85.8 fl 80.0-96.0 Mean Corpuscular HGB 28.3 pg 27.0-33.0 Mean Corpuscular HGB Conc 33.0 g/dL 31.7-36.0 Platelet Count 256 K/uL 150-400 Red Cell Distri Width SD 40.9 fl 36-51 Red Cell Distri Width %CV 13.3 % 11.6-15.8 Mean Platelet Volume 10.6 fL 6.6-10.6 Neut% 56.7 % 33.0-73.0 Lymph % 34.5 % 17.0-56.0 Gregg % 7.2 % 0.0-10.0 Eo% 1.2 % 0.0-5.0 Bas% 0.4 % 0.1-1.0 Neut# 4.20 K/uL 1.8-7.0 Lymph # 2.56 K/uL 1.2-4.0 Gregg # 0.53 K/uL 0.0-0.6 Eos # 0.09 K/uL 0.0-0.5 Baso # 0.03 K/uL Low 0.1-0.2 LDL Cholesterol Profile 05/17/2012 Cholesterol 127 mg/dL 120-200 Triglycerides 86 mg/dL 16-231 HDL Cholesterol 33 mg/dL 29-83 LDL-Cholesterol 77 mg/dL 62-185 Laboratory test 05/17/2012 Prostate Specific Antigen 1.87 ng/mL 0.0-4.0 111 finding Hemoglobin A1c 10/25/2011 Glycohemoglobin (A1c) 7.3 % High 4.8-6.0 112 eAG 163 mg/dL Comprehensive Metabolic Panel 10/25/2011 Glucose 107 mg/dL 76-115 BUN 23 mg/dL 5-23 Creatinine 1.4 mg/dL 0.5-1.4 Glom Filtration Rate, Estimate 54 mL/min >60 If >60 mL/min >60 113 BUN/Creat 16.4 ratio Sodium 138 mmol/L 136-145 Potassium 4.0 mmol/L 3.5-5.1 Chloride 103 mmol/L 98-107 Carbon Dioxide 23 mEq/L 18-29 Anion Gap 16 mEq/L 8-16 Calcium 9.5 mg/dL 8.5-10.1 Total Protein 7.5 g/dL 6.3-8.0 Albumin 4.4 g/dL 3.5-5.0 Globulin 3.1 g/dL 1.9-4.3 Alb/Glob 1.4 ratio Bilirubin,Total 0.6 mg/dL 0.2-1.2 Sgot/Ast 22 U/L 16-40 SGPT/Alt 28 U/L Low 30-65 Alkaline Phosphatase 40 U/L Low 50-136 LDL Cholesterol Profile 10/25/2011 Cholesterol 135 mg/dL 120-200 Triglycerides 114 mg/dL 16-231 HDL Cholesterol 37 mg/dL 29-83 LDL-Cholesterol 75 mg/dL 62-185 1 E11.40 2 Z12.5, E11.40, I10, E78.5, E03.9 3 THIS ASSAY IS NOT INTENDED A CANCER SCREENING TEST The concentration of PSA in a given specimen, determined with assays from different manufacturers, can vary due to differences in assay methods and reagent specificity. Values obtained from different assay methods cannot be used interchangeably. Method: [employer] Chemiluminescent immunoassay. 4 Elevated levels of HbA1c suggest the need for more aggressive treatment of glycemia. The [place] [employer] recommends that a primary goal of therapy should be a HbA1c of <7% and that physicians should re-evaluate the treatment regimen in patients with HbA1c values consistently >8%. 5 Note: Persistent reduction for 3 months or more in an eGFR <60 mL/min/1.73 m2 defines CKD. Patients with eGFR values >/=60 mL/min/1.73 m2 may also have CKD if evidence of persistent proteinuria is present. The original MDRD equation for estimated GFR is not valid for patients less than 18 years of age. Additional information may be found at www.kdoqi.org. 6 Reference Guidelines*: Desirable: ........... < 200 mg/dL Borderline High: ..... 200-239 mg/dL High: ................ >=240 mg/dL * The National Cholesterol Education Program (NCEP) 7 Reference Guidelines*: Normal: ............. < 150 mg/dL Borderline High: .... 150-199 mg/dL High: ............... 200-499 mg/dL Very High: .......... > 500 mg/dL * Source: National Cholesterol Education Program (NCEP) 8 Reference Guidelines*: Low HDL: ..... < 40 mg/dL Normal: ..... 40-60 mg/dL Desirable: ... > 60 mg/dL *The National Cholesterol Education Program(NCEP) 9 Reference Guidelines*: Optimal:........... <100 mg/dL Near Optimal....... 100-129 mg/dL Borderline High.... 130-159 mg/dL High............... 160-189 mg/dL Very High.......... >=190 mg/dL * Source: National Cholesterol Education Program (NCEP) 10 BRONCHITIS 11 Note: Persistent reduction for 3 months or more in an eGFR <60 mL/min/1.73 m2 defines CKD. Patients with eGFR values >/=60 mL/min/1.73 m2 may also have CKD if evidence of persistent proteinuria is present. The original MDRD equation for estimated GFR is not valid for patients less than 18 years of age. Additional information may be found at www.kdoqi.org. 12 Elevated levels of HbA1c suggest the need for more aggressive treatment of glycemia. The [place] [employer] recommends that a primary goal of therapy should be a HbA1c of <7% and that physicians should re-evaluate the treatment regimen in patients with HbA1c values consistently >8%. 13 08/17/17 0848: NEUT% previously reported as: 80.2 H % Amended result called to: [] - 08/17/17 at 0848 08/17/17 0848: LYMPH % previously reported as: 16.4 L % Amended result called to: [] 08/17/17 at 0848 08/17/17 0848: MONO % previously reported as: 3.4 % Amended result called to: [] 08/17/17 at 0848 08/17/17 0848: EO% previously reported as: 0.0 % Amended result called to: [] 08/17/17 at 0848 08/17/17 0848: BAS% previously reported as: 0.0 % Amended result called to: [] - 08/17/17 at 0848 14 SENT FROM [facility] [place], STOMACH PAINS X 3-4 DAYS 15 URINE, CLEAN CATCH 16 Tests: BNP Instructions: 17 Note: Persistent reduction for 3 months or more in an eGFR <60 mL/min/1.73 m2 defines CKD. Patients with eGFR values >/=60 mL/min/1.73 m2 may also have CKD if evidence of persistent proteinuria is present. The original MDRD equation for estimated GFR is not valid for patients less than 18 years of age. Additional information may be found at www.[email or web address]. 18 0.0 - 0.045 ng/mL: Normal 0.046 - 0.5 ng/mL: Suggestive 0.6 - 1.5 ng/mL: Consistent 19 E11.40 I10 E78.5 D64.9 E03.9 20 Elevated levels of HbA1c suggest the need for more aggressive treatment of glycemia. The [place] [employer] recommends that a primary goal of therapy should be a HbA1c of <7% and that physicians should re-evaluate the treatment regimen in patients with HbA1c values consistently >8%. 21 Note: Persistent reduction for 3 months or more in an eGFR <60 mL/min/1.73 m2 defines CKD. Patients with eGFR values >/=60 mL/min/1.73 m2 may also have CKD if evidence of persistent proteinuria is present. The original MDRD equation for estimated GFR is not valid for patients less than 18 years of age. Additional information may be found at www.[email or web address]. 22 Reference Guidelines*: Desirable: ........... < 200 mg/dL Borderline High: ..... 200-239 mg/dL High: ................ >=240 mg/dL * The National Cholesterol Education Program (NCEP) 23 Reference Guidelines*: Normal: ............. < 150 mg/dL Borderline High: .... 150-199 mg/dL High: ............... 200-499 mg/dL Very High: .......... > 500 mg/dL * Source: National Cholesterol Education Program (NCEP) 24 Reference Guidelines*: Low HDL: ..... < 40 mg/dL Normal: ..... 40-60 mg/dL Desirable: ... > 60 mg/dL *The National Cholesterol Education Program(NCEP) 25 Reference Guidelines*: Optimal:........... <100 mg/dL Near Optimal....... 100-129 mg/dL Borderline High.... 130-159 mg/dL High............... 160-189 mg/dL Very High.......... >=190 mg/dL * Source: National Cholesterol Education Program (NCEP) 26 E11.40,I10,E78.5,Z68.30 27 Elevated levels of HbA1c suggest the need for more aggressive treatment of glycemia. The [place] [employer] recommends that a primary goal of therapy should be a HbA1c of <7% and that physicians should re-evaluate the treatment regimen in patients with HbA1c values consistently >8%. 28 Note: Persistent reduction for 3 months or more in an eGFR <60 mL/min/1.73 m2 defines CKD. Patients with eGFR values >/=60 mL/min/1.73 m2 may also have CKD if evidence of persistent proteinuria is present. The original MDRD equation for estimated GFR is not valid for patients less than 18 years of age. Additional information may be found at [email or web address]. 29 Reference Guidelines*: Desirable: ........... < 200 mg/dL Borderline High: ..... 200-239 mg/dL High: ................ >=240 mg/dL * The National Cholesterol Education Program (NCEP) 30 Reference Guidelines*: Normal: ............. < 150 mg/dL Borderline High: .... 150-199 mg/dL High: ............... 200-499 mg/dL Very High: .......... > 500 mg/dL * Source: National Cholesterol Education Program (NCEP) 31 Reference Guidelines*: Low HDL: ..... < 40 mg/dL Normal: ..... 40-60 mg/dL Desirable: ... > 60 mg/dL *The National Cholesterol Education Program(NCEP) 32 Reference Guidelines*: Optimal:........... <100 mg/dL Near Optimal....... 100-129 mg/dL Borderline High.... 130-159 mg/dL High............... 160-189 mg/dL Very High.......... >=190 mg/dL * Source: National Cholesterol Education Program (NCEP) 33 Z00.00 Z12.5 I10 E11.40 E78.5 34 Performed at: RN - [facility] [address] [id number] Policy Change Clerk: Sakshi Garg MD, Phone: [phone] 35 THIS ASSAY IS NOT INTENDED A CANCER SCREENING TEST The concentration of PSA in a given specimen, determined with assays from different manufacturers, can vary due to differences in assay methods and reagent specificity. Values obtained from different assay methods cannot be used interchangeably. Method: Siemens [employer] Jacobson Chemiluminescent immunoassay. 36 Note: Persistent reduction for 3 months or more in an eGFR <60 mL/min/1.73 m2 defines CKD. Patients with eGFR values >/=60 mL/min/1.73 m2 may also have CKD if evidence of persistent proteinuria is present. The original MDRD equation for estimated GFR is not valid for patients less than 18 years of age. Additional information may be found at [email or web address]. 37 Elevated levels of HbA1c suggest the need for more aggressive treatment of glycemia. The [place] [employer] recommends that a primary goal of therapy should be a HbA1c of <7% and that physicians should re-evaluate the treatment regimen in patients with HbA1c values consistently >8%. 38 Reference Guidelines*: Desirable: ........... < 200 mg/dL Borderline High: ..... 200-239 mg/dL High: ................ >=240 mg/dL * The National Cholesterol Education Program (NCEP) 39 Reference Guidelines*: Normal: ............. < 150 mg/dL Borderline High: .... 150-199 mg/dL High: ............... 200-499 mg/dL Very High: .......... > 500 mg/dL * Source: National Cholesterol Education Program (NCEP) 40 Reference Guidelines*: Low HDL: ..... < 40 mg/dL Normal: ..... 40-60 mg/dL Desirable: ... > 60 mg/dL *The National Cholesterol Education Program(NCEP) 41 Reference Guidelines*: Optimal:........... <100 mg/dL Near Optimal....... 100-129 mg/dL Borderline High.... 130-159 mg/dL High............... 160-189 mg/dL Very High.......... >=190 mg/dL * Source: National Cholesterol Education Program (NCEP) 42 Vitamin D deficiency has been defined by the [place] [employer] and an Endocrine Society practice guideline as a level of serum 25-OH vitamin D less than 20 ng/mL (1,2). The Endocrine Society went on to further define vitamin D insufficiency as a level between 21 and 29 ng/mL (2). 1. IOM ([place] [employer]). 2010. Dietary reference intakes for calcium and D. [place]: The National Academies Press. 2. Harleen MF, Lorne [place], Chalo-Santino MANRIQUE, et al. Evaluation, treatment, and prevention of vitamin D deficiency: an Endocrine Society clinical practice guideline. JCEM. 2010; 96(7):1911-30. Performed at: RN - [facility] [address] [id number] Policy Change Clerk: Sakshi Garg MD, Phone: [phone] 43 E11.40 44 Note: Persistent reduction for 3 months or more in an eGFR <60 mL/min/1.73 m2 defines CKD. Patients with eGFR values >/=60 mL/min/1.73 m2 may also have CKD if evidence of persistent proteinuria is present. The original MDRD equation for estimated GFR is not valid for patients less than 18 years of age. Additional information may be found at [email or web address]. 45 Elevated levels of HbA1c suggest the need for more aggressive treatment of glycemia. The [place] [employer] recommends that a primary goal of therapy should be a HbA1c of <7% and that physicians should re-evaluate the treatment regimen in patients with HbA1c values consistently >8%. 46 Reference Guidelines*: Desirable: ........... < 200 mg/dL Borderline High: ..... 200-239 mg/dL High: ................ >=240 mg/dL * The National Cholesterol Education Program (NCEP) 47 Reference Guidelines*: Normal: ............. < 150 mg/dL Borderline High: .... 150-199 mg/dL High: ............... 200-499 mg/dL Very High: .......... > 500 mg/dL * Source: National Cholesterol Education Program (NCEP) 48 Reference Guidelines*: Low HDL: ..... < 40 mg/dL Normal: ..... 40-60 mg/dL Desirable: ... > 60 mg/dL *The National Cholesterol Education Program(NCEP) 49 Reference Guidelines*: Optimal:........... <100 mg/dL Near Optimal....... 100-129 mg/dL Borderline High.... 130-159 mg/dL High............... 160-189 mg/dL Very High.......... >=190 mg/dL * Source: National Cholesterol Education Program (NCEP) 50 Elevated levels of HbA1c suggest the need for more aggressive treatment of glycemia. The [place] [employer] recommends that a primary goal of therapy should be a HbA1c of <7% and that physicians should re-evaluate the treatment regimen in patients with HbA1c values consistently >8%. 51 E11.40, I10 52 Reference Guidelines*: Desirable: ........... < 200 mg/dL Borderline High: ..... 200-239 mg/dL High: ................ >=240 mg/dL * The National Cholesterol Education Program (NCEP) 53 Reference Guidelines*: Normal: ............. < 150 mg/dL Borderline High: .... 150-199 mg/dL High: ............... 200-499 mg/dL Very High: .......... > 500 mg/dL * Source: National Cholesterol Education Program (NCEP) 54 Reference Guidelines*: Low HDL: ..... < 40 mg/dL Normal: ..... 40-60 mg/dL Desirable: ... > 60 mg/dL *The National Cholesterol Education Program(NCEP) 55 Reference Guidelines*: Optimal:........... <100 mg/dL Near Optimal....... 100-129 mg/dL Borderline High.... 130-159 mg/dL High............... 160-189 mg/dL Very High.......... >=190 mg/dL * Source: National Cholesterol Education Program (NCEP) 56 Note: Persistent reduction for 3 months or more in an eGFR <60 mL/min/1.73 m2 defines CKD. Patients with eGFR values >/=60 mL/min/1.73 m2 may also have CKD if evidence of persistent proteinuria is present. The original MDRD equation for estimated GFR is not valid for patients less than 18 years of age. Additional information may be found at [email or web address]. 57 Recorder Helper Seismograph: [id number] SCOOTER ADAMS 58 Recorder Helper Seismograph: [id number] RUBIN ENCARNACION 59 Elevated levels of HbA1c suggest the need for more aggressive treatment of glycemia. The [place] [employer] recommends that a primary goal of therapy should be a HbA1c of <7% and that physicians should re-evaluate the treatment regimen in patients with HbA1c values consistently >8%. 60 Elevated levels of HbA1c suggest the need for more aggressive treatment of glycemia. The [place] [employer] Association recommends that a primary goal of therapy should be a HbA1c of <7% and that physicians should re-evaluate the treatment regimen in patients with HbA1c values consistently >8%. 61 PATIENT UNABLE TO VOID 62 Note: Persistent reduction for 3 months or more in an eGFR <60 mL/min/1.73 m2 defines CKD. Patients with eGFR values >/=60 mL/min/1.73 m2 may also have CKD if evidence of persistent proteinuria is present. The original MDRD equation for estimated GFR is not valid for patients less than 18 years of age. Additional information may be found at [email or web address]. 63 Reference Guidelines*: Desirable: ........... < 200 mg/dL Borderline High: ..... 200-239 mg/dL High: ................ >=240 mg/dL * The National Cholesterol Education Program (NCEP) 64 Reference Guidelines*: Normal: ............. < 150 mg/dL Borderline High: .... 150-199 mg/dL High: ............... 200-499 mg/dL Very High: .......... > 500 mg/dL * Source: National Cholesterol Education Program (NCEP) 65 Reference Guidelines*: Low HDL: ..... < 40 mg/dL Normal: ..... 40-60 mg/dL Desirable: ... > 60 mg/dL *The National Cholesterol Education Program(NCEP) 66 Reference Guidelines*: Optimal:........... <100 mg/dL Near Optimal....... 100-129 mg/dL Borderline High.... 130-159 mg/dL High............... 160-189 mg/dL Very High.......... >=190 mg/dL * Source: National Cholesterol Education Program (NCEP) 67 THIS ASSAY IS NOT INTENDED A CANCER SCREENING TEST The concentration of PSA in a given specimen, determined with assays from different manufacturers, can vary due to differences in assay methods and reagent specificity. Values obtained from different assay methods cannot be used interchangeably. 68 Reference Guidelines*: Desirable: ........... < 200 mg/dL Borderline High: ..... 200-239 mg/dL High: ................ >=240 mg/dL * The National Cholesterol Education Program (NCEP) 69 Reference Guidelines*: Normal: ............. < 150 mg/dL Borderline High: .... 150-199 mg/dL High: ............... 200-499 mg/dL Very High: .......... > 500 mg/dL * Source: National Cholesterol Education Program (NCEP) 70 Reference Guidelines*: Low HDL: ..... < 40 mg/dL Normal: ..... 40-60 mg/dL Desirable: ... > 60 mg/dL *The National Cholesterol Education Program(NCEP) 71 Reference Guidelines*: Optimal:........... <100 mg/dL Near Optimal....... 100-129 mg/dL Borderline High.... 130-159 mg/dL High............... 160-189 mg/dL Very High.......... >=190 mg/dL * Source: National Cholesterol Education Program (NCEP) 72 Elevated levels of HbA1c suggest the need for more aggressive treatment of glycemia. The [place] [employer] recommends that a primary goal of therapy should be a HbA1c of <7% and that physicians should re-evaluate the treatment regimen in patients with HbA1c values consistently >8%. 73 Note: Persistent reduction for 3 months or more in an eGFR <60 mL/min/1.73 m2 defines CKD. Patients with eGFR values >/=60 mL/min/1.73 m2 may also have CKD if evidence of persistent proteinuria is present. The original MDRD equation for estimated GFR is not valid for patients less than 18 years of age. Additional information may be found at [email or web address]. 74 Note: Persistent reduction for 3 months or more in an eGFR <60 mL/min/1.73 m2 defines CKD. Patients with eGFR values >/=60 mL/min/1.73 m2 may also have CKD if evidence of persistent proteinuria is present. The original MDRD equation for estimated GFR is not valid for patients less than 18 years of age. Additional information may be found at [email or web address]. 75 Reference Guidelines*: Desirable: ........... < 200 mg/dL Borderline High: ..... 200-239 mg/dL High: ................ >=240 mg/dL * The National Cholesterol Education Program (NCEP) 76 Reference Guidelines*: Normal: ............. < 150 mg/dL Borderline High: .... 150-199 mg/dL High: ............... 200-499 mg/dL Very High: .......... > 500 mg/dL * Source: National Cholesterol Education Program (NCEP) 77 Reference Guidelines*: Low HDL: ..... < 40 mg/dL Normal: ..... 40-60 mg/dL Desirable: ... > 60 mg/dL *The National Cholesterol Education Program(NCEP) 78 Reference Guidelines*: Optimal:........... <100 mg/dL Near Optimal....... 100-129 mg/dL Borderline High.... 130-159 mg/dL High............... 160-189 mg/dL Very High.......... >=190 mg/dL * Source: National Cholesterol Education Program (NCEP) 79 Elevated levels of HbA1c suggest the need for more aggressive treatment of glycemia. The [place] [employer] recommends that a primary goal of therapy should be a HbA1c of <7% and that physicians should re-evaluate the treatment regimen in patients with HbA1c values consistently >8%. 80 Elevated levels of HbA1c suggest the need for more aggressive treatment of glycemia. The [place] [employer] recommends that a primary goal of therapy should be a HbA1c of <7% and that physicians should re-evaluate the treatment regimen in patients with HbA1c values consistently >8%. 81 THIS ASSAY IS NOT INTENDED A CANCER SCREENING TEST The concentration of PSA in a given specimen, determined with assays from different manufacturers, can vary due to differences in assay methods and reagent specificity. Values obtained from different assay methods cannot be used interchangeably. 82 Note: Persistent reduction for 3 months or more in an eGFR <60 mL/min/1.73 m2 defines CKD. Patients with eGFR values >/=60 mL/min/1.73 m2 may also have CKD if evidence of persistent proteinuria is present. The original MDRD equation for estimated GFR is not valid for patients less than 18 years of age. Additional information may be found at [email or web address]. 83 Reference Guidelines*: Desirable: ........... < 200 mg/dL Borderline High: ..... 200-239 mg/dL High: ................ >=240 mg/dL * The National Cholesterol Education Program (NCEP) 84 Reference Guidelines*: Normal: ............. < 150 mg/dL Borderline High: .... 150-199 mg/dL High: ............... 200-499 mg/dL Very High: .......... > 500 mg/dL * Source: National Cholesterol Education Program (NCEP) 85 Reference Guidelines*: Low HDL: ..... < 40 mg/dL Normal: ..... 40-60 mg/dL Desirable: ... > 60 mg/dL *The National Cholesterol Education Program(NCEP) 86 Reference Guidelines*: Optimal:........... <100 mg/dL Near Optimal....... 100-129 mg/dL Borderline High.... 130-159 mg/dL High............... 160-189 mg/dL Very High.......... >=190 mg/dL * Source: National Cholesterol Education Program (NCEP) 87 Elevated levels of HbA1c suggest the need for more aggressive treatment of glycemia. The [place] [employer] recommends that a primary goal of therapy should be a HbA1c of <7% and that physicians should re-evaluate the treatment regimen in patients with HbA1c values consistently >8%. 88 Note: Persistent reduction for 3 months or more in an eGFR <60 mL/min/1.73 m2 defines CKD. Patients with eGFR values >/=60 mL/min/1.73 m2 may also have CKD if evidence of persistent proteinuria is present. The original MDRD equation for estimated GFR is not valid for patients less than 18 years of age. Additional information may be found at [email or web address]. 89 Reference Guidelines*: Desirable: ........... < 200 mg/dL Borderline High: ..... 200-239 mg/dL High: ................ >=240 mg/dL * The National Cholesterol Education Program (NCEP) 90 Reference Guidelines*: Normal: ............. < 150 mg/dL Borderline High: .... 150-199 mg/dL High: ............... 200-499 mg/dL Very High: .......... > 500 mg/dL * Source: National Cholesterol Education Program (NCEP) 91 Reference Guidelines*: Low HDL: ..... < 40 mg/dL Normal: ..... 40-60 mg/dL Desirable: ... > 60 mg/dL *The National Cholesterol Education Program(NCEP) 92 Reference Guidelines*: Optimal:........... <100 mg/dL Near Optimal....... 100-129 mg/dL Borderline High.... 130-159 mg/dL High............... 160-189 mg/dL Very High.......... >=190 mg/dL * Source: National Cholesterol Education Program (NCEP) 93 Elevated levels of HbA1c suggest the need for more aggressive treatment of glycemia. The [place] [employer] recommends that a primary goal of therapy should be a HbA1c of <7% and that physicians should re-evaluate the treatment regimen in patients with HbA1c values consistently >8%. 94 A1c value between 5.7% and 6.4% is considered at increased risk for diabetes. A1c value greater than 6.5 % is considered essentially diagnostic for Type II diabetes. Current guidelines recommend a treatment goal of <7% for diabetic patients. This method will measure glycosylated hemoglobin variants, HbS, HbG, HbH, HbWayne, HbC, HbE, etc. Other hemoglobin- opathies may give incorrect results with this test. 95 A1c value between 5.7% and 6.4% is considered at increased risk for diabetes. A1c value greater than 6.5 % is considered essentially diagnostic for Type II diabetes. Current guidelines recommend a treatment goal of <7% for diabetic patients. This method will measure glycosylated hemoglobin variants, HbS, HbG, HbH, HbWayne, HbC, HbE, etc. Other hemoglobin- opathies may give incorrect results with this test. 96 Note: Persistent reduction for 3 months or more in an eGFR <60 mL/min/1.73 m2 defines CKD. Patients with eGFR values >/=60 mL/min/1.73 m2 may also have CKD if evidence of persistent proteinuria is present. The original MDRD equation for estimated GFR is not valid for patients less than 18 years of age. Additional information may be found at [email or web address]. 97 Note: Persistent reduction for 3 months or more in an eGFR <60 mL/min/1.73 m2 defines CKD. Patients with eGFR values >/=60 mL/min/1.73 m2 may also have CKD if evidence of persistent proteinuria is present. The original MDRD equation for estimated GFR is not valid for patients less than 18 years of age. Additional information may be found at [email or web address]. 98 A1c value between 5.7% and 6.4% is considered at increased risk for diabetes. A1c value greater than 6.5 % is considered essentially diagnostic for Type II diabetes. Current guidelines recommend a treatment goal of <7% for diabetic patients. This method will measure glycosylated hemoglobin variants, HbS, HbG, HbH, HbWayne, HbC, HbE, etc. Other hemoglobin- opathies may give incorrect results with this test. 99 A1c value between 5.7% and 6.4% is considered at increased risk for diabetes. A1c value greater than 6.5 % is considered essentially diagnostic for Type II diabetes. Current guidelines recommend a treatment goal of <7% for diabetic patients. This method will measure glycosylated hemoglobin variants, HbS, HbG, HbH, HbWayne, HbC, HbE, etc. Other hemoglobin- opathies may give incorrect results with this test. 100 Note: Persistent reduction for 3 months or more in an eGFR <60 mL/min/1.73 m2 defines CKD. Patients with eGFR values >/=60 mL/min/1.73 m2 may also have CKD if evidence of persistent proteinuria is present. The original MDRD equation for estimated GFR is not valid for patients less than 18 years of age. Additional information may be found at [email or web address]. 101 A1c value between 5.7% and 6.4% is considered at increased risk for diabetes. A1c value greater than 6.5 % is considered essentially diagnostic for Type II diabetes. Current guidelines recommend a treatment goal of <7% for diabetic patients. This method will measure glycosylated hemoglobin variants, HbS, HbG, HbH, HbWayne, HbC, HbE, etc. Other hemoglobin- opathies may give incorrect results with this test. 102 Note: Persistent reduction for 3 months or more in an eGFR <60 mL/min/1.73 m2 defines CKD. Patients with eGFR values >/=60 mL/min/1.73 m2 may also have CKD if evidence of persistent proteinuria is present. The original MDRD equation for estimated GFR is not valid for patients less than 18 years of age. Additional information may be found at [email or web address]. 103 CALLED CHRISTINE Ortega AT 1250 08/13/12 by [email or web address] 104 0 - 0.5 ng/mL: No evidence of myocardial injury 0.6 - 1.4 ng/mL: Mild elevation, suggesting possible myocardial injury > 1.4 ng/mL: Consistent with myocardial injury 105 Note: Persistent reduction for 3 months or more in an eGFR <60 mL/min/1.73 m2 defines CKD. Patients with eGFR values >/=60 mL/min/1.73 m2 may also have CKD if evidence of persistent proteinuria is present. The original MDRD equation for estimated GFR is not valid for patients less than 18 years of age. Additional information may be found at [email or web address]. 106 OPERATION/PROCEDURE Right modified radical mastectomy, lymph scintigraphy, [...] AT [facility]. PATHOLOGIC STAGING: pT1c, N1, MX. BENEDICT/david INTERPRETATION COMMENT Previous biopsy ([id number]) was reviewed. No high grade nuclei are [...] is a 1.7 x 0.9 x 0.9 GROSS (Continued) cm. cano-pink rubbery tissue. Trisected and submitted [...] The background breast tissue is grossly unremarkable. 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 JW/clf MICROSCOPIC Part 1: Sections show a lymph [...] unremarkable. Immunohistochemistry studies were performed at [facility] and interpreted at [facility] with proper controls, because of high [...] Progesterone receptor: >80% nuclear stain, high positive. Nrh6own: 1+, No evidence of amplification. PRE OPERATIVE DIAGNOSIS Right breast cancer. REVIEW CODE CODE: I Signed NATALIIA DREW MD [id number] 107 OPERATION/PROCEDURE Right modified radical mastectomy, lymph scintigraphy, sentinel lymph node biopsy. ADDENDUM Addendum #1 Entered: 12/10/121778 This case was reviewed as requested by Dr. Car. No evidence of extracapsular extension is seen in the sentinel lymph node (part 2) with metastatic ductal carcinoma. Dr. Car's office ([place]) was notified about this update. Addendum Signed NATALIIA DREW MD 12/10/12 3771 DIAGNOSIS: PART 1: "RIGHT SENTINEL NODE": NO [...] DIAGNOSIS: (Continued) Dee INTERPRETATION COMMENT Previous biopsy ([id number]) was reviewed. No high grade nuclei are [...] The background breast tissue is grossly unremarkable. 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 JW/clf MICROSCOPIC Part 1: Sections show a lymph [...] unremarkable. Immunohistochemistry studies were performed at [facility] and interpreted at [facility] with proper controls, because of high [...] Progesterone receptor: >80% nuclear stain, high positive. Njy6wic: 1+, No evidence of amplification. PRE OPERATIVE DIAGNOSIS Right breast cancer. REVIEW CODE CODE: I Signed NATALIIA DREW MD 08/19/12 1346 108 OPERATION/PROCEDURE Right breast core biopsy ADDENDUM Addendum #1 Entered: 07/11/12-1012 FISH study for [id number] amplification was performed and interpreted at [facility] ([id number]). No amplification of Her2 is seen. Addendum Signed NATALIIA DREW MD 1013 DIAGNOSIS: FINAL REPORT, IMMUNOHISTOCHEMISTRY STUDIES COMPLETED "RIGHT BREAST, NEEDLE CORE BIOPSY": INVASIVE DUCTAL CARCINOMA, LOW GRADE, AT LEAST 1.1 CM IN GREATEST DIMENSION, SEE MICROSCOPIC DESCRIPTION. BENEDICT/david INTERPRETATION COMMENT Primary care physician ([place]) was notified about the interpretation of malignancy and plan for additional studies at approximately 03:25 pm, 06/27/2012. Vascular invasion cannot be ruled out. D2-40 stain cannot be evaluated due to folding of tissue. [facility] was contacted and the stain will be repeated. GROSS "RIGHT BREAST BIOPSY". The specimen is received in an appropriately labeled container. This contains two cores of pink-white soft tissue. The shortest measures 1.6 x 0.2 x 0.1 cm., the longest is 1.9 x 0.2 x 0.2 cm.; submitted in toto within a single cassette. JW/clf MICROSCOPIC Sections reveal irregular ducts lined by mildly atypical cells infiltrating desmoplastic stroma. Necrosis is focally seen. There are intimate association of tumor with nerves, suspicious for perineural invasion. Spaces surrounding tumor cords, suspicious for vascular invasion are seen. Immunohistochemistry studies were performed at [facility] and interpreted at [facility] with proper controls. No definitive evidence of vascular invasion is seen. Greatest dimension: At least 1.1 cm. Histologic type: Invasive ductal carcinoma Histologic grade ([place] grading system): Grade I. Nuclear pleomorphism: Mild, score=1. Mitotic index: Less than 5 per 10 high power thomas, score=1. Tubule formation: Approximately 15%, score=2. In situ component: Not seen. Vascular invasion: Indeterminate. Perineural invasion: Indeterminate. Estrogen receptor: >90% nuclear stain, high positive. Progesterone receptor: >90% nuclear stain, high positive. Rzp8ump: 2+. FISH result for [id number] amplification will be reported in an addendum. PRE OPERATIVE DIAGNOSIS Palpable right breast mass and microcalcs. REVIEW CODE CODE: I NATALIIA Figueroa MD 1208 109 A1c value between 5.7% and 6.4% is considered at increased risk for diabetes. A1c value greater than 6.5 % is considered essentially diagnostic for Type II diabetes. Current guidelines recommend a treatment goal of <7% for diabetic patients. This method will measure glycosylated hemoglobin variants, HbS, HbG, HbH, HbWayne, HbC, HbE, etc. Other hemoglobin- opathies may give incorrect results with this test. 110 Note: Persistent reduction for 3 months or more in an eGFR <60 mL/min/1.73 m2 defines CKD. Patients with eGFR values >/=60 mL/min/1.73 m2 may also have CKD if evidence of persistent proteinuria is present. The original MDRD equation for estimated GFR is not valid for patients less than 18 years of age. Additional information may be found at www.kdo[facility].org. 111 THIS ASSAY IS NOT INTENDED A CANCER SCREENING TEST The concentration of PSA in a given specimen, determined with assays from different manufacturers, can vary due to differences in assay methods and reagent specificity. Values obtained from different assay methods cannot be used interchangeably. 112 A1c value between 5.7% and 6.4% is considered at increased risk for diabetes. A1c value greater than 6.5 % is considered essentially diagnostic for Type II diabetes. Current guidelines recommend a treatment goal of <7% for diabetic patients. This method will measure glycosylated hemoglobin variants, HbS, HbG, HbH, HbWayne, HbC, HbE, etc. Other hemoglobin- opathies may give incorrect results with this test. 113 Note: Persistent reduction for 3 months or more in an eGFR <60 mL/min/1.73 m2 defines CKD. Patients with eGFR values >/=60 mL/min/1.73 m2 may also have CKD if evidence of persistent proteinuria is present. The original MDRD equation for estimated GFR is not valid for patients less than 18 years of age. Additional information may be found at www.kdoqi.org. Procedures Date CPT Code Description Status Comment 07/23/2017 Mammogram Completed Document: 07/23/17 - Mammogram 11/05/2015 64312 EKG Completed 07/16/2015 Mammogram Completed 05/21/2015 50865 Color/Snellen Vision Completed 05/21/2015 05870 Audiogram, Screen Only Pure Completed Tone 05/20/2014 40239 Audiogram, Screen Only Pure Completed Tone 05/16/2013 51895 Hearing Test Completed 05/15/2012 39627 EKG Completed 05/15/2012 27115 Hearing Test Completed 02/01/2012 50887 Hearing Test Completed 01/18/2011 79668 Color/Snellen Vision Completed 01/18/2011 16215 Hearing Test Completed 01/06/2010 98827 Color/Snellen Vision Completed 01/06/2010 80803 Hearing Test Completed 11/26/2008 48612 Color/Snellen Vision Completed 11/26/2008 14469 Hearing Test Completed Encounters Type Date Location Provider CPT E/M Dx Office Visit 01/17/2018 10:45a Main Office Migue Pickett M.D. 58191 E11.40 I10 E78.5 N18.9 D64.9 E03.9 G47.00 Office Visit 10/18/2017 10:45a Main Office Migue Pickett M.D. 44528 E11.40 I10 E78.5 N18.9 D64.9 E03.9 Office Visit 08/22/2017 10:45a Main Office Migue Pickett M.D. 57284 J20.9 Office Visit 07/05/2017 10:00a Main Office Migue Pickett M.D. 36665 Z00.01 Z12.12 Z12.5 E11.40 I10 E78.5 E03.9 Office Visit 05/17/2017 1:15p Main Office Migue Pickett M.D. 49499 M25.512 Office Visit 04/27/2017 11:30a Main Office Migue Pickett M.D. 42042 E11.40 I10 E78.5 R32 D64.9 E03.9 Z23 Office Visit 01/22/2017 11:15a Main Office Migue Pickett M.D. 38296 E11.40 L60.0 Office Visit 01/15/2017 4:00p Main Office Migue Pickett M.D. 62719 L03.113 L60.0 Office Visit 10/12/2016 3:30p Main Office Migue Pickett M.D. 12589 E11.40 I10 E78.5 G47.00 Z68.30 Office Visit 06/20/2016 3:45p Main Office Migue Pickett M.D. 48176 Z00.00 Z12.12 Z12.5 I10 E11.40 G47.00 E78.5 Office Visit 04/14/2016 8:45a Main Office Migue Pickett M.D. 70472 E11.40 Z23 Office Visit 03/10/2016 8:15a Main Office Migue Pickett M.D. 73048 E11.40 Office Visit 02/29/2016 1:30p Main Office Migue Pickett M.D. 81256 J20.9 Office Visit 11/05/2015 10:00a Main Office Migue Pickett M.D. 78200 E11.40 I10 G47.00 E78.5 H26.9 Z01.818 Office Visit 06/21/2015 8:00a Main Office Migue Pickett M.D. 34349 E11.40 Office Visit 05/21/2015 8:15a Main Office Migue Pickett M.D. 03160 Z00.01 Z12.12 Z12.5 G47.00 E78.5 I10 C50.021 Z23 E11.40 Office Visit 01/11/2015 8:45a Main Office Migue Pickett M.D. 21651 250.00 357.2 780.52 272.4 Office Visit 12/14/2014 10:30a Main Office Migue Pickett M.D. 61696 250.00 401.9 272.4 110.1 780.52 Office Visit 09/14/2014 8:15a Main Office Migue Pickett M.D. 54282 250.00 357.2 327.52 Office Visit 08/20/2014 8:00a Main Office Migue Pickett M.D. 80082 250.00 401.9 175.0 357.2 Office Visit 05/20/2014 8:15a Main Office Migue Pickett M.D. 42086 V70.0 250.00 401.9 272.4 V76.41 V76.44 530.81 V04.81 Office Visit 02/03/2014 8:45a Main Office Migue Pickett M.D. 22980 250.00 401.9 274.9 272.4 356.8 782.3 Office Visit 11/07/2013 8:00a Main Office Migue Pickett M.D. 90960 250.00 272.4 401.9 274.9 Office Visit 09/22/2013 8:15a Main Office Migue Pickett M.D. 45320 250.00 611.79 588.9 719.47 272.4 Office Visit 08/11/2013 8:00a Main Office Migue Pickett M.D. 68802 250.00 564.00 Office Visit 07/22/2013 8:30a Main Office Migue Pickett M.D. 42149 250.00 401.9 272.4 354.0 Office Visit 06/12/2013 8:00a Main Office Migue Pickett M.D. 26055 782.3 250.00 Office Visit 05/16/2013 8:15a Main Office Migue Pickett M.D. 41778 V70.0 V76.44 250.00 401.9 272.4 611.79 366.9 v76.41 Office Visit 05/01/2013 9:00a Main Office Migue Pickett M.D. 72363 250.00 354.0 401.9 272.4 611.79 Office Visit 04/07/2013 4:30p Main Office Migue Pickett M.D. 00819 354.0 782.3 250.00 v04.81 Office Visit 02/28/2013 8:45a Main Office Migue Pickett M.D. 12353 726.32 789.07 Office Visit 02/21/2013 8:00a Main Office Migue Pickett M.D. 93072 250.00 401.9 272.4 611.79 787.01 943.24 Office Visit 01/30/2013 9:00a Main Office Migue Pickett M.D. 97716 250.00 401.9 272.4 726.19 Office Visit 07/10/2012 8:00a Main Office Migue Pickett M.D. 17390 611.79 Office Visit 06/24/2012 2:45p Main Office Migue Pickett M.D. 98199 611.79 Office Visit 06/10/2012 8:00a Main Office Migue Pickett M.D. 37478 611.79 Office Visit 05/15/2012 2:00p Main Office Migue Pickett M.D. 55232 250.00 250.00 401.9 401.9 V70.0 272.4 780.52 366.9 V72.83 Office Visit 02/01/2012 8:00a Main Office Migue Pickett M.D. 97722 250.00 401.9 272.4 530.81 780.52 v70.0 V03.82 Office Visit 11/02/2011 8:00a Main Office Migue Pickett M.D. 01136 250.00 401.9 272.4 Office Visit 07/24/2011 8:15a Main Office Migue Pickett M.D. 08023 250.00 401.9 530.81 272.4 Office Visit 04/21/2011 8:15a Main Office Migue Pickett M.D. 11548 250.00 401.9 530.81 272.4 V04.81 Office Visit 10/19/2010 8:00a Main Office Migue Pickett M.D. 63429 250.00 780.52 285.9 Office Visit 08/12/2010 10:00a Main Office Migue Pickett M.D. 64709 923.00 Office Visit 07/20/2010 8:00a Main Office Migue Pickett M.D. 21304 250.00 401.1 272.4 Office Visit 04/13/2010 8:15a Main Office Migue Pickett M.D. 93620 250.00 401.1 272.4 V04.81 Office Visit 01/06/2010 9:00a Main Office Migue Pickett M.D. 80825 250.00 401.1 272.4 V70.0 V05.9 Office Visit 12/21/2009 9:00a Main Office Migue Pickett M.D. 65447 250.00 401.1 533.00 272.4 Office Visit 09/29/2009 8:00a Main Office Migue Pickett M.D. 59961 250.00 401.1 272.4 Office Visit 09/07/2009 9:15a [place] [address] 465.9 786.2 Office Visit 06/28/2009 8:00a Main Office Migue Pickett M.D. 28803 250.00 401.1 272.4 V04.81 Office Visit 02/25/2009 8:15a Main Office Migue Pickett M.D. 60672 250.00 401.1 272.4 Office Visit 11/26/2008 8:45a Main Office Migue Pickett M.D. 58477 V70.0 401.1 250.00 715.90 272.4 389.22 V06.1 Office Visit 10/23/2008 9:15a Main Office Migue Pickett M.D. 11290 465.9 250.00 401.1 272.4 Office Visit 07/01/2008 8:15a Main Office Migue Pickett M.D. 66153 250.00 465.9 272.4 401.9 Office Visit 04/06/2008 8:00a Main Office Migue Pickett M.D. 26812 250.00 716.90 719.47 V04.81 Office Visit 03/05/2008 8:00a Main Office Migue Pickett M.D. 91975 250.00 401.9 728.71 Office Visit 11/15/2007 8:45a Main Office Migue Pickett M.D. 14579 250.00 272.4 401.9 Office Visit 08/09/2007 8:15a Main Office Migue Pickett M.D. 33167 250.00 272.4 401.9 Office Visit 05/10/2007 8:00a Main Office Migue Pickett M.D. 60051 250.00 272.4 401.9 V70.0 V04.81 V03.82 Office Visit 02/01/2007 8:00a Main Office Migue Pickett M.D. 46855 250.00 272.4 401.9 Plan of Care Future Appointment(s):07/08/2018 8:15 am - Migue Pickett M.D. at [facility]/17/2018 - Migue Pickett M.D.E11.40 Type 2 diabetes mellitus with diabetic neuropathy, unspNew Labs:Glycohemoglobin [id number],Random UrineFollow up:3 [id number] Essential (primary) ukkzdivbptyyU64.5 Hyperlipidemia , unspecifiedNew Labs:LDL Cholesterol XbcpqncV54.9 Chronic kidney disease, unspecifiedNew Labs:Comprehensive Metabolic SpfbhJ11.9 Anemia, unspecifiedNew Labs:CBCE03.9 Hypothyroidism, unspecifiedNew Labs:TSH Reflex FT4 And/Or FT3G47.00 Insomnia, unspecifiedNew Medication:Trazodone HCL 50 mg
--- NOTE | 2018-02-08 14:08 | UC ---
General HPI - HPI Summary HPI Summary: Pleasant 72 yo gentleman c/o last couple days urinary frequency / dysuria / bladder (lower mid pelvic) pain. No fever / chills. No cough. No abd pain c/ o elsewhere. No flank or new back pain (does have chronic back discomfort). No rash. No new breathing issues. No cp / palpitations. 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 Stomach ulcer with surgery approx 20 yrs ago, pt reports no problems since then. Sees urologist from chronic prostate issues, but reports that current sx are inconsistent with his prostate problems. - History of Current Complaint Stated Complaint: URINARY Time Seen by Provider: 02/08/18 14:00 Hx Obtained From: Patient - Allergy/Home Medications Allergies/Adverse Reactions: Allergies Allergy/AdvReac Type Severity Reaction Status Date / Time No Known Allergies Allergy Verified 02/08/18 14:25 PMH/Surg Hx/FS Hx/Imm Hx Previously Healthy: No - see hpi - Surgical History Surgical History: Yes Surgery Procedure, Year, and Place: Right Mastectomy, intestine rupture - Family History Known Family History: Positive: Hypertension Negative: Cardiac Disease, Diabetes - Social History Alcohol Use: None Substance Use Type: None Smoking Status (MU): Former Smoker Amount Used/How Often: 1 PACK A DAY FOR 25 YEARS When Did the Patient Quit Smoking/Using Tobacco: 27 YEARS AGO Household Exposure Type: Cigarettes - Immunization History Most Recent Pneumonia Vaccination: 2014 Review of Systems Constitutional: Negative Skin: Negative Eyes: Negative ENT: Negative Respiratory: Negative Cardiovascular: Negative Gastrointestinal: Other - see hpi Motor: Negative Neurovascular: Negative Musculoskeletal: Negative Neurological: Negative Psychological: Negative Is Patient Immunocompromised?: No All Other Systems Reviewed And Are Negative: Yes Physical Exam Triage Information Reviewed: Yes Appearance: Well-Appearing, Well-Nourished Vital Signs Reviewed: Yes Eye Exam: Normal - grossly nad ENT Exam: Normal - mmm. grossly nad. Neck exam: Normal - no c/o's. + kyphosis. Respiratory Exam: Normal Respiratory: Positive: Chest non-tender, Lungs clear, Normal breath sounds, No respiratory distress, No accessory muscle use Cardiovascular Exam: Normal - heart rate normal Cardiovascular: Positive: Brisk Capillary Refill Abdominal Exam: Other - Abd soft, nondistended. No cvat. + surgical scar. + nabs. Tender midlower pelvic region, (bladder area) Musculoskeletal Exam: Normal - moves x 4 ext's, gait slow steady Neurological Exam: Normal - grossly nonfocal Psychological Exam: Normal - conversing easily and appropriately Skin Exam: Normal - no visible or reported rash Course/Dx - Course Course Of Treatment: Reviewed coa / tx plan with Mr. Gomez, including need for f/u with pcp. Questions as posed answered to the best of my ability. Follow up with your urologist, per routine. Call the office on Sunday to advise of your condition. Considered several diff dx, including prostate, hematuria, abd problems otherwise. D/w pt, will f/u pcp and will seek medical attention if worse or new problems in the meantime. - Differential Dx - Multi-Symptom Provider Diagnoses: Cystitis Discharge - Sign-Out/Discharge Documenting (check all that apply): Patient Departure - Discharge Plan Condition: Stable Disposition: HOME Patient Education Materials: Urinary Tract Infection in Men (ED), Hematuria (ED ) Referrals: Migue Pickett MD [Primary Care Provider] - Additional Instructions: Please follow up with your primary care physician in the next couple weeks. Seek medical attention for worse or new problems in the meantime. You will need to have your urine rechecked to make sure that you do not have blood in your urine (after treatment complete). Consider probiotics while taking antibiotic. - Billing Disposition and Condition Condition: STABLE Disposition: Home
[2018-02-08 14:29] VITALS: BP 139/53
== END 2018-02-08 15:04 | disposition home or self-care (01) ==
LOC: UCCORT 12:22
DX: Z87.891 Personal history of nicotine dependence (principal); N30.90 Cystitis, unspecified without hematuria
CPT/HCPCS: 81003; 87086; 99212; G0463